=== PATIENT | female | born 2000 | race Caucasian/White ===

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

== ENCOUNTER 2020-02-03 00:11 | Outpatient (CLI) | payer OTHER, SELFPAY ==
[2020-02-03 16:41] LABS: SARS-CoV-2 RNA PCR Negative
== END 2020-02-03 00:12 | disposition home or self-care (01) ==
LOC: ANHCOVIDDT 00:11
PROVIDERS: PCP Family Medicine; Visit Provider Obstetrics & Gynecology
DX: Z01.812 Encounter for preprocedural laboratory examination (principal); Z20.828 Contact with and (suspected) exposure to other viral communicable diseases
CPT/HCPCS: 87635; C9803; U0003

== ENCOUNTER 2020-02-05 01:31 | Day surgery (SDC) | payer OTHER, SELFPAY ==
[2020-01-28 08:24] VITALS: BMI 29.2
--- NOTE | 2020-02-04 15:28 | WPDANESEPPF ---
Anes - Initial Pre Proc Eval Procedure: Operation Date: 02/05/20 07:30 Proposed Procedures p Diagnostic Laparoscopy - Naomie Malave MD Date/Time: 02/04/20 15:28 Surgeon: Naomie Malave MD Pre Op Diagnosis: pelvic pain, menorrhaghia Patient Data Age: 19 Gender: F Height: 1.63 m Weight: 77.11 kg Allergies Allergy/AdvReac Type Severity Reaction Status Date / Time No Known Allergies Allergy Verified 01/28/20 08:26 Home Medications Medication Instructions Recorded Confirmed Type Taytulla 1 cap PO DAILY 01/28/20 01/28/20 History bupropion HCl 300 mg PO DAILY 01/28/20 01/28/20 History hydrocodone-acetaminophen 1 - 2 tablet PO Q4H PRN #25 tablet 02/05/20 Rx Patient hx anesthesia problems: none Family hx anesthesia problems: none [facility] Past Medical History Medical History (Updated 02/04/20 @ 15:29 by Doc Garcia MD) Fibromyalgia Overweight (BMI 25.0-29.9) Social History Social History Smoking status: Never smoker Anes - Eval Final PreProcedure Day of Procedure 02/04/20 15:28 Patient weight: overweight Heart: regular rate and rhythm Lungs: clear to auscultation and normal air movement Airway: Mallampati scale class II Neurological: alert and oriented Last oral intake: >/= 8 hours ASA classification: II Emergent: no Anesthetic plan: proceed Anesthesia type and monitoring: general ETT Informed Consent: The patient's anesthetic plan and its attendant risks and benefits were discussed with the patient/family/POA. Questions were solicited and answers provided to the satisfaction of the patient/family/POA.
[2020-02-05] VITALS (9 sets, daily range): BP systolic 98–143; BP diastolic 75–92; PULSE 78–105; RESP 15–21; TEMP 36.2–36.6; O2SAT 98–100
[2020-02-05] MEDS: LACTATED RINGERS 1,000 ML 30 ML IV CONT ×2 (06:50→09:01)
--- NOTE | 2020-02-05 07:27 | WPDHPUPDATE1 ---
History and Physical Update Update Date/Time: 02/05/20 07:27 History and Physical has been reviewed, including an updated exam of the patient. There are NO changes in the patient's condition. Risks, benefits, and alternatives have been discussed and questions answered. Patient agrees to proceed with procedure.
[2020-02-05] MEDS: KETOROLAC 30 MG/ML VIAL (*BKC) IV PUSH (08:44)
--- NOTE | 2020-02-05 08:48 | SUR.OPER ---
EBL:5cc
--- NOTE | 2020-02-05 09:15 | P.OP_ITS ---
Procedure Note - Detailed Date of procedure: 02/05/20 Pre-op diagnosis: pelvic pain, menorrhaghia Post-op diagnosis: other (pelvic pain, endometriosis) Procedure performed: Description of procedure: The patient was taken the operating room. She was prepped and draped in the dorsal lithotomy position after induction of general anesthesia. A 5 mm left upper quadrant incision was made in the abdominal skin with a scalpel. A 5 mm trocar was inserted the intra-abdominal cavity under direct visualization of the scope. A 5 mm left lower quadrant incision was made with the scalp on the abdominal skin and a 5 mm trocar was inserted the intra- abdominal cavity under direct visualization of the scope. A 5 mm infraumbilical incision was made with scalpel and a 5 mm trocar was inserted into the intra- abdominal cavity under direct visualization of the scope. Using sharp and blunt dissection the ureter was completely exposed on the right side of the posterior cul-de-sac. The peritoneum and a right posterior cul-de-sac was removed from the ovarian fossa laterally to the rectum medially. It was from the pelvic brim to the uterine arteries in a anterior posterior dimension. This all done with sharp and blunt dissection. Cautery was used to make it hemostatic. A band of type peritoneum between the cervix and the posterior pelvis was taken down with this. Interceed was placed over the dissected area. The pelvis was irrigated with copious amounts of normal saline. The pneumoperitoneum was reduced. The trocars were removed. The patient was taken recovery room stable condition. Sponge lap and needle counts were correct x2. Anesthesia: GETA Surgeon: Naomie Malave MD Estimated blood loss (mL): 50 Drains: No Packing: No Pathology: yes Complications: No immediate complications Condition: stable Disposition: PACU Findings: There appeared to be endometriosis in the right posterior cul-de-sac in the area of the uterine artery/broad ligament. There is a band of peritoneum from the cervix to the posterior pelvis that appeared tight. The uterus, tubes and ovaries appeared normal.
[2020-02-05] MEDS: ONDANSETRON INJ 4 MG/2 ML VIAL IV PUSH (10:23)
== END 2020-02-05 11:10 | disposition home or self-care (01) ==
PROVIDERS: PCP Family Medicine; Visit Provider Obstetrics & Gynecology
PROC: (CPT 49320; principal; 2020-02-05 07:30)
DX: K66.0 Peritoneal adhesions (postprocedural) (postinfection) (principal); R10.2 Pelvic and perineal pain; N92.0 Excessive and frequent menstruation with regular cycle; M79.7 Fibromyalgia
CPT/HCPCS: 58662; 88305; J0131; J0330; J1100; J1885; J2250; J2405; J2704; J3010; J7120

== ENCOUNTER 2020-06-24 15:30 | Outpatient (RCR) | payer OTHER, SELFPAY ==
--- NOTE | 2020-06-05 09:26 | PTOPEVAL ---
INITIAL PHYSICAL THERAPY EVALUATION and PLAN OF CARE Thank you for referring Jessica Clemons to [facility].? Jessica is scheduled to be seen for physical therapy? 1x/week for 8 weeks. Please review, sign, date and return this plan of care BRANDO. I agree with and certify that the following plan of care is medically necessary. Referring Physician Date Admitting Provider: Attending Provider: Naomie Malave MD Referring Provider: Naomie Malave MD *PT Outpatient Evaluation Start: 06/05/20 08:18 Freq: Status: Active Protocol: Document 06/05/20 08:15 [facility] (Rec: 06/05/20 09:26 BOB [id number]) Therapy Assessment Status Assessment Status Assessment Status Evaluation Outpatient Past Medical History Past Medical History Source of Past Medical History Recalled from Previous Visit, Confirmed with Patient/Family Neurological History Hx Neurological Disorders No Significant History Cardiovascular History Hx Cardiac Disorders No Significant History Respiratory History Hx Respiratory Disorders No Significant History Gastrointestinal History Hx Gastrointestinal Disorders No Significant History Genitourinary History Hx Genitourinary Disorders No Significant History Musculoskeletal History Hx Fibromyalgia Yes Hematological History Hx Hematological Disorders No Significant History Endocrine History Hx Endocrine Disorders No Significant History HEENT History Hx Tonsillectomy Yes Integumentary History Hx Skin Disorders No Significant History Reproductive History Hx Endometriosis Yes Hx Other Reproductive Disorders Yes: PELVIC PAIN, PCOS Psychosocial History Hx Psychiatric Disorders No Significant History Pain History Has Past Pain Affected Your Daily Life Yes: FIBROMYALGIA Anesthesia History Hx Anesthesia Reactions No Significant History Evaluation Information Problem Diagnosis chronic pelvic pain Onset initially 3 years ago, worsened within last year Additional Evaluation Detail February 06, 2020 - laproscopic surgery - found endrometriosis Subjective Information R side of sacrum - pressure, Query Text:As Reported By Patient/ discomfort Has to be Family careful with lifting - will have R sided pain - posteriorly and in groin Also limited with certain movements of her pelvis on the R side. Sleep - unable to lie on R side, needs to keep R leg in extension - unable to flex R hip and knee Mornings
--- NOTE | 2020-07-03 09:47 | PCPTNOTE ---
Patient called & cancelled scheduled appointment this date due to illness. Message left on voice mail.
--- NOTE | 2020-07-15 14:46 | PCPTNOTE ---
PHYSICAL THERAPY DISCHARGE SUMMARY Admitting Provider: Attending Provider: Naomie Malave MD Patient:Jessica Clemons Date of :2000 Jessica had to cancel her 07/03/2020 appointment due to illness. She has not returned for any further treatments. I phoned her this date and she is doing well. She is having very little discomfort - mainly with lifting and with prolonged standing. [place] is no longer painful for her. She continues with her HEP on a regular basis. Proper patient transfer techniques were reviewed with her. Jessica will be discharged at this time. Patient?s initial visit was on 06/05/2020 08:00 and she had a total of 4 visits. The goals have been met. Thank you for referring Jessica to [facility]. Please review, sign, date and return this discharge summary BRANDO. I have been updated about Jessica's current status and I agree with discharge from the above service at this time. Referring Physician Date
== END 2020-07-29 15:38 | disposition home or self-care (01) ==
LOC: ANHHIPT 15:30
PROVIDERS: PCP Family Medicine; Referring Provider Obstetrics & Gynecology; Visit Provider Obstetrics & Gynecology
DX: R10.2 Pelvic and perineal pain (principal)
CPT/HCPCS: 97110; 97140; 97161

== ENCOUNTER 2021-12-17 14:31 | Outpatient (CLI) | payer OTHER, SELFPAY ==
--- NOTE | ~2021-12-17 | XR_ITS ---
XR ankle RT min 3V DATE: 12/17/2021 14:54 INDICATION: Right lateral ankle pain after rolling ankle. TECHNIQUE: 4 views COMPARISON: 06/06/2015 right ankle FINDINGS: There is moderate lateral soft tissue swelling. Extremely subtle possible cortical avulsion fracture from the inferior tip of the lateral malleolus; otherwise no fracture or dislocation of the ankle or disruption of the ankle mortise. IMPRESSION: Possible very slight subtle cortical avulsion fracture from the inferior tip of lateral m alleolus; moderate lateral soft tissue swelling Reviewed, dictated and finalized at location A. IMPRESSION: Possible very slight subtle cortical avulsion fracture from the inf erior tip of lateral malleolus; moderate lateral soft tissue swelling
== END 2021-12-17 14:32 | disposition home or self-care (01) ==
LOC: CHSIMG 14:35
PROVIDERS: PCP Physician Assistant
DX: M25.571 Pain in right ankle and joints of right foot (principal)
CPT/HCPCS: 73610

== ENCOUNTER 2021-12-30 14:51 | Outpatient (CLI) | payer OTHER, SELFPAY ==
--- NOTE | 2022-01-01 16:48 | WPDHOLTEREM ---
Holter/Event Monitor Holter/Event Monitor Date of procedure: 01/01/22 Holter/Event Procedure: 24 Hr Holter Monitor Diagnosis: Palpitations Indications: Palpitations Image/Tracing Quality: Good Finding: She patient was monitored for 24 hours. The underlying rhythm is sinus with a minimum heart rate of 57 beats per minute, average heart rate 91 beats per minute and maximum heart rate of 158 beats per minute. Sinus arrhythmia was noted. There were 21 APCs and no PVCs. There is no a SVT, atrial fibrillation, ventricular tachycardia, heart block or pauses. The patient had 2 episodes of dizziness which corresponded to sinus rhythm heart rate 92 and 96 beats per minute and she also had 2 episodes of palpitations which correspond to sinus rhythm rate 84 and 85 beats per minute. Conclusion: 24 hour Holter monitor is remarkable for high average heart rate; consider hyperthyroidism, anemia or inappropriate sinus tachycardia Patient's symptoms correlated with sinus rhythm.
== END 2021-12-30 14:52 | disposition home or self-care (01) ==
LOC: ANHCARD 14:53
PROVIDERS: PCP Physician Assistant; Visit Provider Obstetrics & Gynecology
DX: R00.2 Palpitations (principal)
CPT/HCPCS: 93225; 93226

== ENCOUNTER 2022-01-07 17:01 | Outpatient (RCR) | payer OTHER, SELFPAY ==
--- NOTE | 2022-01-11 08:19 | PTOPEVAL ---
Thank you for referring Jessica Clemons to [facility].? The patient is scheduled to be seen for therapy? ____x/week for ___ weeks. Please review, sign, date and return this plan of care BRANDO. I agree with and certify that the following plan of care is medically necessary. Referring Physician Date Admitting Provider: Attending Provider: BRAD PATEL Referring Provider: TUSHAR Outpatient Evaluation Start: 01/07/22 17:01 Freq: Status: Active Protocol: Document 01/07/22 17:10 [facility] (Rec: 01/07/22 17:45 [facility] [id number]) Therapy Assessment Status Assessment Status Assessment Status Evaluation Outpatient Past Medical History Neurological History Hx Neurological Disorders No Significant History Cardiovascular History Hx Cardiac Disorders No Significant History Respiratory History Hx Respiratory Disorders No Significant History Gastrointestinal History Hx Gastrointestinal Disorders No Significant History Genitourinary History Hx Genitourinary Disorders No Significant History Musculoskeletal History Hx Fibromyalgia Yes Hematological History Hx Hematological Disorders No Significant History Endocrine History Hx Endocrine Disorders No Significant History HEENT History Hx Tonsillectomy Yes Integumentary History Hx Skin Disorders No Significant History Reproductive History Hx Endometriosis Yes Hx Other Reproductive Disorders Yes: PELVIC PAIN, PCOS Psychosocial History Hx Psychiatric Disorders No Significant History Pain History Has Past Pain Affected Your Daily Life Yes: FIBROMYALGIA Anesthesia History Hx Anesthesia Reactions No Significant History Evaluation Information Problem Diagnosis R ankle avulsion fracture, instability Onset 12/17/21 Additional Evaluation Detail LEFS = 60% functionally declined Subjective Information patient reports she was Query Text:As Reported By Patient/ walking and stepped on some Family uneven ground. she reports she almost fell, but did catch her self from falling. she reports she had xrays taken which show a slight possible avulsion fracture of the lateral malleolus of the R ankle. she reports she has been in the boot for about 3 weeks. she reports she has a follow up on 02/08/22 with , and reports she thinks she has to wear the boot until
--- NOTE | 2022-02-03 13:12 | PTOPEVAL ---
Thank you for referring Jessica Clemons to [facility].? The patient is scheduled to be seen for therapy? ____x/week for ___ weeks. Please review, sign, date and return this plan of care BRANDO. I agree with and certify that the following plan of care is medically necessary. Referring Physician Date Admitting Provider: Attending Provider: BRAD PATEL Referring Provider: TUSHAR Outpatient Evaluation Start: 01/07/22 17:01 Freq: Status: Active Protocol: Document 02/03/22 12:00 [facility] (Rec: 02/03/22 13:11 [facility] [id number]) Therapy Assessment Status Assessment Status Assessment Status Evaluation Outpatient Past Medical History Neurological History Hx Neurological Disorders No Significant History Cardiovascular History Hx Cardiac Disorders No Significant History Respiratory History Hx Respiratory Disorders No Significant History Gastrointestinal History Hx Gastrointestinal Disorders No Significant History Genitourinary History Hx Genitourinary Disorders No Significant History Musculoskeletal History Hx Fibromyalgia Yes Hematological History Hx Hematological Disorders No Significant History Endocrine History Hx Endocrine Disorders No Significant History HEENT History Hx Tonsillectomy Yes Integumentary History Hx Skin Disorders No Significant History Reproductive History Hx Endometriosis Yes Hx Other Reproductive Disorders Yes: PELVIC PAIN, PCOS Psychosocial History Hx Psychiatric Disorders No Significant History Pain History Has Past Pain Affected Your Daily Life Yes: FIBROMYALGIA Anesthesia History Hx Anesthesia Reactions No Significant History Evaluation Information Problem Diagnosis R ankle avulsion fracture, instability Onset 12/17/21 Additional Evaluation Detail LEFS = 8% functionally declined Subjective Information patient reports she feels Query Text:As Reported By Patient/ good this date. she reports Family she has no pain today. she reports at most she is 3/10 sore in the R ankle. however, she reports this is only when up on her feet for al margaret time . she reports she is back to all prior level activities and work with normal shoe wear. Pain Assessment Timing of Pain Assessment Timing of Pain Assessment Assessment Pain Scale Pain Scale Used Numeric (1 - 10) Self Report Pain Assessment Right Ankle(s) Reported Pain Level 0 Greatest Pain Intensity 3 Pain Score Pain Score
== END 2022-02-03 10:24 | disposition home or self-care (01) ==
LOC: CHSPT 17:01
PROVIDERS: PCP Physician Assistant
DX: M25.373 Other instability, unspecified ankle (principal)
CPT/HCPCS: 97016; 97110; 97161; 97530

== ENCOUNTER 2022-03-16 09:00 | Outpatient (RCR) | payer OTHER, SELFPAY ==
--- NOTE | 2022-02-07 10:34 | PTOPEVAL ---
PHYSICAL THERAPY EVALUATION AND PLAN OF CARE Thank you for referring Jessica Clemons to [facility].? The patient is scheduled to be seen for therapy? 1x/week for 4-8 weeks. Please review, sign, date and return this plan of care BRANDO. I agree with and certify that the following plan of care is medically necessary. Referring Physician Date Evaluation Diagnosis low back pain Additional Evaluation Detail 20 weeks genstation Subjective Information States that she previously had Query Text:As Reported By Patient/ back pain and she Family participated in physical therapy that helped to relieve the pain. The pain was previously on the right and doing her HEP was helpful. About 2months into she noted low back pain more on the left side and this pain feels somewhat similar except with more locking - decreased ability to move. Hurts worst when on a hard surface and when lying flat. Prolonged standing can be uncomfortable. Left Spine, Lumbar Reported Pain Level 5 Pain Description Aching,Tightness Pain Frequency Acute,Continuous Pain Score Pain Score 5: Self Report Interventions Used Interventions Used By Clinicians Exercise,Manual Therapy Techniques,Myofascial Release, Position Change Pain Relief Interventions Used By Position Change Patient Cervical and Lumbar ROM Lumbar ROM Lumbar Comments generally WFL with decreased extension at L4 and pain in left SIJ region Posture Supine Position Leg Length Discrepancy left leg long; iliac crests inflared, right more than left Palpation trigger points and spasm noted to left gluteus medius and adeline PT Clinical Summary Jessica is a 21 yo female, 20weeks gestation, with left sided low back/SIJ pain. She presents today with left SIJ dysfunction with left iliact crest rotated posteriorly and with associated spasms to left sided glutes. She also pre
--- NOTE | 2022-03-09 09:50 | PCPTNOTE ---
Patient called & cancelled scheduled appointment this date due to not being able to get off work for therapy appointment.
--- NOTE | 2022-03-16 09:24 | PTOPEVAL ---
PHYSICAL THERAPY DISCHARGE NOTE Thank you for referring Jessica Clemons to [facility].? Please review, sign, date and return this plan of care BRANDO. I agree with and certify that the following plan of care is medically necessary. Referring Physician Date Attending Provider: Maryuri Goodwin CNM Diagnosis low back pain Additional Evaluation Detail 25 weeks genstation Subjective Information States that she feels an Query Text:As Reported By Patient/ overall improvement in Family symptoms with some flucutating days depending on her activity level and how much she is on her feet. She goes to do the gym to do her home exercises. She states that she knows how to help her symptoms and what stretches to do and it helps. Lumbar ROM Lumbar Comments generally WFL with decreased extension at L4 and pain in left SIJ region Lower Extremity Muscle Strength Testing General Lower Extremity Strength Gross Lower Extremity Strength 5/5 Hip flexion, abduction, and extension; good glute activation Posture Posture Supine Position Additional Posture Comments neutral pelvis noted today Palpation Assessment Palpation Palpation mild tenderness to left glute med; overall improved and generally WFL PT Clinical Summary Jessica is a 21 yo female, 25weeks gestation, with left sided low back/SIJ pain. She demonstrates normal pelvic positioning today. She reports understanding of her HEP and understanding of management of symptoms as she progresses with her . We will d/ c from PT at this time with independent HEP.
== END 2022-03-17 08:57 | disposition home or self-care (01) ==
LOC: ANHPT 09:00
PROVIDERS: PCP Physician Assistant; Visit Provider Advanced Practice Midwife
DX: O99.891 Other specified diseases and conditions complicating pregnancy (principal); M54.50 Low back pain, unspecified; Z3A.20 20 weeks gestation of pregnancy; Z3A.25 25 weeks gestation of pregnancy
CPT/HCPCS: 97110; 97112; 97140; 97162

== ENCOUNTER 2022-03-28 11:03 | Outpatient (RCR) | payer OTHER, SELFPAY ==
[2022-03-28 11:55] VITALS: BP 118/58; PULSE 71
== END 2022-06-26 23:59 | disposition home or self-care (01) ==
LOC: ANHOBOP 11:03
PROVIDERS: PCP Physician Assistant; Visit Provider Obstetrics & Gynecology
DX: O36.8120 Decreased fetal movements, second trimester, not applicable or unspecified (principal); Z3A.27 27 weeks gestation of pregnancy
CPT/HCPCS: 59025

== ENCOUNTER 2022-05-19 15:32 | Outpatient (CLI) | payer OTHER, SELFPAY ==
[2022-05-19 15:55] VITALS: BP 133/77; PULSE 115
[2022-05-19 16:00] VITALS: BP 121/70; PULSE 97
[2022-05-19 16:02] VITALS: BP 124/69; PULSE 100
[2022-05-19 16:06] VITALS: BP 122/72; PULSE 107
[2022-05-19 16:11] VITALS: BP 129/69; PULSE 92
[2022-05-19 16:16] VITALS: BP 120/69; PULSE 105
== END 2022-05-19 16:22 | disposition home or self-care (01) ==
LOC: ANHOBOP 15:37 → ANHOBPP 15:37
PROVIDERS: PCP Physician Assistant; Visit Provider Obstetrics & Gynecology
DX: O41.8X90 Other specified disorders of amniotic fluid and membranes, unspecified trimester, not applicable or unspecified (principal); Z3A.00 Weeks of gestation of pregnancy not specified
CPT/HCPCS: 59025; 84112; 99199

== ENCOUNTER 2022-06-30 14:28 | Inpatient (IN) | payer OTHER, SELFPAY ==
[2022-06-30 17:00] VITALS: BMI 41.8
--- NOTE | 2022-06-30 17:01 | WPDANESEPP ---
Anes - Eval Pre Procedure Procedure: labor epidural Date/Time: 06/30/22 17:01 Pre Op Diagnosis: contractions Patient Data Age: 22 Gender: F Height: Weight: Last Vital Signs O2 Del Method Room Air 06/30/22 16:49 Allergies Allergy/AdvReac Type Severity Reaction Status Date / Time No Known Allergies Allergy Verified 05/19/22 16:01 Home Medications Medication Instructions Recorded Confirmed Type prenat.vits,joanne,dyk-sots-ruftr 1 tablet PO DAILY 05/19/22 06/30/22 History Patient hx anesthesia problems: none Family hx anesthesia problems: none Results Review: All pre-operative results and documents have been reviewed as part of the pre-operative evaluation. [facility] Past Medical History Medical History Fibromyalgia Overweight (BMI 25.0-29.9) Social History Social History Smoking status: Never smoker Second hand tobacco smoke exposure: No Alcohol intake: never Substance use: never Living arrangements: with family Gender identity (if verbalized by the patient): Female Sexual Orientation (if Verbalized by the Patient): Straight or Heterosexual Spiritual care concerns: No Exam Day of Procedure 06/30/22 17:01 Patient weight: overweight Heart: regular rate and rhythm Lungs: normal air movement Airway: Mallampati scale Neurological: alert and oriented
[2022-06-30 17:12] LABS: Basophils Percent Auto 0.1 % (0.2-1.2); Eosinophils Absolute Auto 0.1 K/mm3 (0-0.3); Eosinophils Percent Auto 0.3 % (0-4.4); Hematocrit 41.7 % (37.0-47.0); Immature Granulocyte Absolute 0.07 K/mm3 (0.00-0.031); Immature Granulocyte Percent A 0.5 % (0-0.5); Lymphocytes Absolute Auto 2.71 K/mm3 (0.9-3.2); Lymphocytes Percent Auto 18.8 % (18.3-44.2); Mean Corpuscular HGB Conc 33.6 g/dl (32-36); Mean Corpuscular Hemoglobin 32.6 pg (26-34); Mean Platelet Volume 11.3 fl (7.4-10.4); Monocytes Percent Auto 6.8 % (2.6-8.5); Neutrophils Absolute Auto 10.6 K/mm3 (1.3-6.7); Neutrophils Percent Auto 73.5 % (45.5-73.1); Platelet Count Result 170 k/mm3 (150-375); Red Cell Distribution Width 14.9 % (11.5-14.5); White Blood Count 14.4 K/mm3 (4.5-10.0)
[2022-06-30 17:53] VITALS: BP 132/84; PULSE 129
[2022-06-30 21:51] VITALS: BP 126/84; PULSE 92
[2022-06-30 22:07] VITALS: TEMP 36.5
[2022-07-01] VITALS (195 sets, daily range): BP systolic 78–216; BP diastolic 39–184; PULSE 32–179; RESP 18; TEMP 36.3–38; O2SAT 78–100
[2022-07-01] MEDS: LACTATED RINGERS 1,000 ML 125 ML IV CONT ×2 (05:25→09:30)
[2022-07-01] MEDS: OXYTOCIN 30 UNITS/NS 500 ML 30 UNITS/500 ML BAG IV CONT (05:26)
[2022-07-01] MEDS: fentaNYL CITRATE INJ (*CRX) 100 MCG/2 ML VIAL 50 MCG IV PUSH (07:51)
--- NOTE | 2022-07-01 07:59 | WPDOBADMIT ---
Obstetrics - Admit Note Admission Note: record reviewed. No pertinent additions to the history and/or any subsequent changes in the physical findings that are not consistent with the expected course of the were found. Elective IOL, hx endometriosis, hx fibromyalgia, Ruptured with RN check, CNM checked behind and /-2 with meconium stained fluid, dr. lindsey aware Additions to the history and/or subsequent changes in the physical findings follow. None.
[2022-07-01] MEDS: ONDANSETRON INJ 4 MG/2 ML VIAL IV PUSH (13:29)
[2022-07-01 14:49] LABS: Rapid Plasma Reagin Non-Reactive (NonReactive)
--- NOTE | 2022-07-01 16:41 | PM.OBPRVD ---
OB - Delivery Note Procedure Delivery date: 07/01/22 Procedure: Delivery augmentation: Pitocin Delivery monitor: External FHT and Internal Uterine Route of delivery: Episiotomy description: None Laceration Description: Periurethral and Perineal - 2nd Degree Delivery repair: vicryl Specimen: Yes Quantitative Blood Loss (ml): 400 Anesthesia type: Epidural [place] Baby Date of : 07/01/22 Weeks of gestation at delivery: 40 Weight (pounds): 7 Weight (ounces): 8 score one minute: 8 score five minutes: 9
[2022-07-01] MEDS: OXYTOCIN 30 UNITS/NS 500 ML 30 UNITS/500 ML BAG 125 UNITS IV CONT (16:48)
[2022-07-01] MEDS: IBUPROFEN 600 MG TABLET PO ×2 (17:22→23:08)
[2022-07-01] MEDS: WITCH HAZEL 40 PADS 1 PAD TOPICAL (18:57)
[2022-07-01] MEDS: BENZOCAINE 20% AER SPR (*SP) 56 GM CAN 1 SPRAY TOPICAL (18:57)
[2022-07-01] MEDS: DOCUSATE SODIUM 100 MG CAPSULE PO (23:10)
[2022-07-02] MEDS: ACETAMINOPHEN 325 MG TABLET 650 MG PO ×4 (01:00→20:33)
[2022-07-02 04:45] VITALS: BP 109/62; PULSE 104; RESP 18; TEMP 36.6; O2SAT 100
[2022-07-02] MEDS: IBUPROFEN 600 MG TABLET PO ×3 (04:59→17:52)
[2022-07-02 05:30] LABS: Hematocrit 29.5 % (37.0-47.0); Hemoglobin 9.8 g/dL (12.0-15.0)
[2022-07-02 08:00] VITALS: BP 129/67; PULSE 104; PULSE 107; RESP 18; TEMP 36.6; O2SAT 100
[2022-07-02] MEDS: DOCUSATE SODIUM 100 MG CAPSULE PO ×2 (08:02→17:51)
[2022-07-02] MEDS: MULTIVIT/MIN/PREN/FOL AC/IRON TABLET 1 TAB PO (08:02)
[2022-07-02] MEDS: POLYSACCHARIDE IRON COMPLEX 150 MG CAPSULE PO ×2 (08:04→17:52)
--- NOTE | 2022-07-02 10:00 | PM.OBPNVD ---
OB - PN: Subj Subjective Date/time seen: 07/02/22 10:00 s/p vaginal delivery day 1 OB - PN: Obj Data Labs CBC & Chem 7: 07/02/22 04:52 Labs: Laboratory Results - last 24 hr 06/30/22 07/02/22 16:46 04:52 Hgb 9.8 L D Hct 29.5 L RPR Non-reactive OB - PN A/P Plan day: 1 Time Spent With Patient Time: Total time spent is greater than 50% in coordination of care (as documented) at patient's floor/unit and/or counseling patient: Review of Systems Review of Systems: All systems reviewed & are unremarkable except as noted in HPI and below Exam Const: General: cooperative, healthy appearing and comfortable
--- NOTE | 2022-07-02 12:20 | WPDANLDPN2 ---
Anes-Prog Note L&D Date/Time: 07/02/22 12:20 Comfortable throughout: labor and delivery Neuraxial method: epidural Epidural/Spinal procedure site: clean & non-tender Neuro status: Neuro function grossly intact. Cardiovascular status: normal Respiratory status: normal Airway patency: baseline Mental status: baseline Post-Op hydration status: normal Vital Signs: Last Vital Signs Temp 36.6 C 07/02/22 08:00 Pulse 107 H 07/02/22 08:00 Resp 18 07/02/22 08:00 BP 129/67 07/02/22 08:00 Pulse Ox 100 07/02/22 08:00 O2 Del Method Room Air 07/02/22 08:00 Pain score (VAS): 10 I/O: Intake & Output 07/01/22 07/02/22 07/02/22 23:59 07:59 15:59 Intake Total 500 Output Total 115 Balance 385 Post-procedural complaints: none Patient feedback: Patient satisfied with anesthetic care.
[2022-07-02 13:30] VITALS: BP 135/74; PULSE 102; RESP 18; TEMP 36.1; O2SAT 99
[2022-07-02 18:45] VITALS: BP 125/72; PULSE 107; RESP 16; TEMP 36.5
[2022-07-03] MEDS: IBUPROFEN 600 MG TABLET PO ×3 (01:32→14:33)
[2022-07-03] MEDS: ACETAMINOPHEN 325 MG TABLET 650 MG PO ×2 (05:25→11:50)
[2022-07-03 08:00] VITALS: BP 124/79; PULSE 89; RESP 16; TEMP 36.6; O2SAT 100
[2022-07-03] MEDS: DOCUSATE SODIUM 100 MG CAPSULE PO (08:13)
[2022-07-03] MEDS: POLYSACCHARIDE IRON COMPLEX 150 MG CAPSULE PO (08:13)
[2022-07-03] MEDS: MULTIVIT/MIN/PREN/FOL AC/IRON TABLET 1 TAB PO (08:16)
--- NOTE | 2022-07-03 11:07 | PM.OBPNVD ---
OB - PN: Subj Subjective Date/time seen: 07/03/22 11:07 s/p vaginal delivery day 1 OB - PN: Obj Data Labs CBC & Chem 7: 07/02/22 04:52 OB - PN A/P Plan day: 2 Plan: routine care and discharge home Time Spent With Patient Time: Total time spent is greater than 50% in coordination of care (as documented) at patient's floor/unit and/or counseling patient: Review of Systems Review of Systems: All systems reviewed & are unremarkable except as noted in HPI and below Exam Const: General: cooperative, healthy appearing and comfortable
--- NOTE | 2022-07-03 11:15 | PM.OBDSVD ---
DS: Admitting Diagnosis Discharge Date 07/03/22 Admitting Diagnosis IOL OB - DS: Summary OB Procedures : None OB Procedures Intrapartum: Spontaneous Vag Delivery OB Procedures: : None Time Spent with Patient Time attestation: Total time spent providing and/or coordinating discharge services: DS: Data Data Completed and Pending Pending studies at discharge: Pending at discharge 07/01/22 16:08 Surgical [PTH] Routine Discharge Plan Discharge Attending physician on discharge: Naomie Malave Discharging Clinician: Maryuri Goodwin Patient Disposition: Home, Self-Care Activity: pelvic rest Diet: regular Patient Instructions: Antibiotic Form Stand Alone Forms: General Discharge Information Follow-up/Referrals: Naomie Malave MD [Physician] - 4 Weeks Discharge Medications: New ibuprofen 600 mg Tablet 600 mg PO Q6H PRN (Reason: Cramping) Qty: 30 0RF Continued Vitamin Tablet 1 tablet PO DAILY Date of admission: 06/30/22 14:28 Primary Care Provider: MandeepGarcia Admitting Provider: Naomie Malave Attending physician on admission: Naomie Malave Condition: Stable
--- NOTE | 2022-07-03 12:03 | PC.NURSE ---
Patient viewed the discharge video Mother & Baby Care, The First Two Weeks . Patient was given the opportunity and encouraged to ask questions. Patient verbalized understanding of information shared and has been given the mother/baby guide for home reference.
[2022-07-04 08:21] VITALS: BP 133/84; PULSE 93; RESP 20; TEMP 36.8; O2SAT 100
== END 2022-07-03 17:30 | disposition home or self-care (01) | DRG 560 ==
LOC: ANHLDR 16:10 → ANHOB2 07-01 19:29
PROVIDERS: Admitting Provider Obstetrics & Gynecology; PCP Physician Assistant; Visit Provider Obstetrics & Gynecology
DX: O99.892 Other specified diseases and conditions complicating childbirth (principal); O41.1230 Chorioamnionitis, third trimester, not applicable or unspecified; O63.1 Prolonged second stage (of labor); O70.1 Second degree perineal laceration during delivery; M79.7 Fibromyalgia; Z37.0 Single live birth; Z3A.40 40 weeks gestation of pregnancy; O36.8330 Maternal care for abnormalities of the fetal heart rate or rhythm, third trimester, not applicable or unspecified; O77.0 Labor and delivery complicated by meconium in amniotic fluid; N80.9 Endometriosis, unspecified; O71.82 Other specified trauma to perineum and vulva
CPT/HCPCS: 36415; 85014; 85018; 85025; 86592; 86850; 86900; 86901; 88307; A9270; J2405; J2590; J2795; J3010; J7120

== ENCOUNTER 2022-09-02 13:52 | Outpatient (CLI) | payer OTHER, SELFPAY ==
--- NOTE | ~2022-09-02 | XR_ITS ---
EXAMINATION: XR knee RT 3V DATE: 09/02/2022 14:24 INDICATION: Anterior right knee pain. TECHNIQUE: 3 views of right knee on 4 radiographs were obtained. COMPARISON: None. FINDINGS: Bone alignment is normal. No fracture. Joint spaces are well maintained. There is no knee j oint effusion. IMPRESSION: 1. Normal right knee. Reviewed, dictated and finalized at location A. ATRIC ORTHODONTIST IMPRESSION: 1. Normal right knee.
--- NOTE | ~2022-09-02 | XR_ITS ---
EXAMINATION: XR knee LT 3V DATE: 09/02/2022 14:23 INDICATION: Left knee pain TECHNIQUE: Three views of the left knee were obtained. COMPARISON: None. FINDINGS: Alignment is normal. There is no fracture. There is an eccentric lytic lesion in the medial aspect of the distal shaft of the left femur with mild expansion. 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 Joint spaces are nor mal with no erosions. No joint effusion/synovitis. Soft tissues are unremarkable. IMPRESSION: 1. No acute osseous abnormality. Reviewed, dictated and finalized at location B. PATROLLER
== END 2022-09-02 13:53 | disposition home or self-care (01) ==
LOC: CHSIMG 13:55
PROVIDERS: PCP Registered Nurse; Visit Provider Registered Nurse
DX: M25.561 Pain in right knee (principal); M25.562 Pain in left knee
CPT/HCPCS: 73562

== ENCOUNTER 2022-09-07 16:01 | Outpatient (RCR) | payer OTHER, SELFPAY ==
--- NOTE | 2022-09-07 16:57 | PTOPEVAL1 ---
Assessment and note entered by JT File, PT Evaluation Information Assessment Status Evaluation Diagnosis bilateral knee pain Onset 07/05/22 Subjective Information patient reports she has been having bilateral knee pain since she gave . she reports she has increased pain in the bilateral knees with weight bearing. she reports routine child to her daughter. she reports the pain in the knees is achy in nature. Reported Pain Level Pain Score 8: Self Report Assessment PT Clinical Summary mrs. correa presents to skilled PT services for evaluation and treatment of bilateral knee pain. she presents this date with signs and symptoms of patellofemoral pain. she presents with weakness, core weakness, pain, and decreased flexibility, she would benefit from skilled PT to improve her objective/functional deficits and progress towards a return to her prior level functional activity performance/quality of life. Plan of Care Interventions Electrical Stimulation,Gait Training,Hot Pack/Cold Pack,Manual Therapy,Neuro Re-education,Patient/ Caregiver Educati,Therapeutic Activities, Therapeutic Exercise PT Services Indicated Yes Treatment Frequency and 3x weekly for 9 visits Duration These treatments will address the objective and functional deficits as defined above. The patient will be advanced safely and appropriately in order for the patient to progress towards his/her prior level of function. Additional exercises will be introduced and as well as a comprehensive home exercise program upon discharge, if needed, ?to ensure carryover of functional gains achieved in the clinic. This treatment plan has been reviewed and agreement upon by the patient.
== END 2022-10-06 14:20 | disposition home or self-care (01) ==
LOC: CHSPT 16:01
PROVIDERS: PCP Family Medicine; Visit Provider Registered Nurse
DX: M25.561 Pain in right knee (principal); M25.562 Pain in left knee
CPT/HCPCS: 97110; 97161

== ENCOUNTER 2023-01-23 12:44 | Outpatient (CLI) | payer OTHER, SELFPAY ==
[2023-01-23 13:18] LABS: SARS-CoV-2 Ag Negative (Negative)
[2023-01-23 13:26] LABS: Strep Group A RT-PCR NOT DETECTED (Negative)
== END 2023-01-23 12:45 | disposition home or self-care (01) ==
LOC: CHSLAB 12:46
PROVIDERS: PCP Registered Nurse; Visit Provider Registered Nurse
DX: J02.9 Acute pharyngitis, unspecified (principal); Z20.822 Contact with and (suspected) exposure to COVID-19
CPT/HCPCS: 87426; 87651; C9803

== ENCOUNTER 2023-10-02 12:07 | Outpatient (CLI) | payer OTHER, SELFPAY ==
--- NOTE | ~2023-10-02 | XR_ITS ---
XR lumbar spine 2-3V DATE: 10/02/2023 12:38 INDICATION: Lumbar radiculopathy TECHNIQUE: AP, lateral, coned lateral lumbosacral views COMPARISON: None FINDINGS: There is minimal degenerative spurring of the thoracic and lumbar spine. No fracture or bone destruction. The lumbar pedicles are intact. No spondylolisthesis. The sacroiliac joints are intact. IMPRESSION: Minimal degenerative spurring Reviewed, dictated and finalized at location B. KING MANAGER
== END 2023-10-02 12:08 | disposition home or self-care (01) ==
LOC: CHSLAB 12:14
PROVIDERS: PCP Registered Nurse; Visit Provider Registered Nurse
DX: M54.16 Radiculopathy, lumbar region (principal)
CPT/HCPCS: 72100

== ENCOUNTER 2023-10-05 11:22 | Outpatient (CLI) | payer OTHER, SELFPAY ==
[2023-10-05 11:45] LABS: Basophils Absolute Auto 0.03 K/mm3 (0.00-0.10); Basophils Percent Auto 0.3 % (0.0-1.0); Eosinophils Absolute Auto 0.16 K/mm3 (0.02-0.50); Eosinophils Percent Auto 1.7 % (1.0-6.0); Hematocrit 41.8 % (35.0-49.0); Hemoglobin 13.6 g/dL (12.0-15.0); Immature Granulocyte Absolute 0.04 K/mm3 (0.00-0.00); Immature Granulocyte Percent A 0.4 % (0.0-0.0); Lymphocytes Absolute Auto 1.57 K/mm3 (1.10-4.50); Lymphocytes Percent Auto 16.3 % (18.0-42.0); Mean Corpuscular HGB Conc 32.5 g/dL (32.0-36.0); Mean Corpuscular Hemoglobin 30.5 pg (27.0-31.0); Mean Corpuscular Volume 93.7 fL (78.0-102.0); Mean Platelet Volume 10.4 fl (9.2-11.8); Monocytes Absolute Auto 0.57 K/mm3 (0.10-0.90); Monocytes Percent Auto 5.9 % (2.0-11.0); Neutrophils Absolute Auto 7.3 K/mm3 (1.7-7.2); Neutrophils Percent Auto 75.4 % (50.0-70.0); Platelet Count Result 198 K/mm3 (150-420); Red Blood Count 4.46 M/mm3 (4.20-5.40); Red Cell Distribution Width 12.2 % (11.6-14.4); White Blood Count 9.6 K/mm3 (4.8-10.8)
[2023-10-05 12:21] LABS: Alanine Aminotransferase 20 U/L (14-59); Albumin Level 3.1 g/dL (3.4-5.0); Alkaline Phosphatase 81 U/L (46-116); Anion Gap 11 mmol/L (8-16); Aspartate Amino Transferase 12 U/L (15-37); Bilirubin,Total 0.2 mg/dL (0.00-1.00); Blood Urea Nitrogen 17 mg/dL (7-18); Calcium 8.9 mg/dL (8.5-10.1); Carbon Dioxide 26 mmol/L (21-32); Chloride 107 mmol/L (98-108); Estimated Glomerular Filt Rate > 60; Glucose 98 mg/dL (70-99); Iron 75 ug/dL (50-170); Magnesium 1.6 mg/dL (1.8-2.4); Osmolality Calculated 299 mOsm/kg (285-295); Percent Iron Saturation 29 % (12-57); Potassium 3.9 mmol/L (3.5-5.1); Sodium 144 mmol/L (136-145); Total Protein 6.5 g/dL (6.4-8.2)
== END 2023-10-05 11:23 | disposition home or self-care (01) ==
PROVIDERS: PCP Family Medicine; Visit Provider Registered Nurse
DX: R25.2 Cramp and spasm (principal)
CPT/HCPCS: 36415; 80053; 83540; 83550; 83735; 85025

== ENCOUNTER 2023-10-09 09:03 | Outpatient (RCR) | payer OTHER, SELFPAY ==
--- NOTE | 2023-10-09 10:09 | OPREHPOC ---
Outpatient Therapy Plan of Care This is a Multidisciplinary Plan of Care that may contain components documented by all disciplines (PT, OT, and ST.) PT Problem 1 PT Problem #1 Knowledge Deficit PT Goal 1 Goal Patient to demonstrate independence with HEP Target Visit 5 PT Problem 2 PT Problem #2 Pain PT Goal 1 Goal 1. Patient to report highest pain at 2/10 2. Patient to report ability to complete shift at work with no radiating pain to the R LE Target Visit 10 PT Problem 3 PT Problem #3 Impaired Strength PT Goal 1 Goal Patient to demonstrate 5/5 R LE strength to return to getting out of chair at PLOF Target Visit 10 PT Problem 4 PT Problem #4 Impaired Functional Mobil PT Goal 1 Goal 1. Patient to demonstrate ability to reach to floor to picker machine operator her daughter 2. Patient to report ability to ambulate for >30 minutes to grocery shop with no radiating pain 3. Patient to score 50% improvement on Back Index Target Visit 10
--- NOTE | 2023-10-09 10:09 | PTOPEVAL1 ---
Assessment and note entered by Kinza Pisano DPT Evaluation Information Assessment Status Evaluation Diagnosis low back pain, R LE pain Onset 10/02/23 Subjective Information Patient reports about 2 weeks ago at work she noticed a sharp pain with standing up from her chair to the R low back and hip and difficulty with walking. She reports with walking her pain would lessen. She does report pain will radiate down to the R foot. She reports she has had an x- ray and was prescribed pain medication. Patient reports increased pain with prolonged positioning, getting up from a chair, sleeping on her side, and getting into and out of the car. 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 Reported Pain Level Pain Score 5,6: Self Report Assessment PT Clinical Summary Ms. Clemons is a 23 year old who presents to PT with low back pain that radiated to the R LE. She demonstrates decreased R LE strength, decreased lumbar ROM, and decreased LE flexibility impairing her ability to stand up out of chair, ambulate prolonged distances, get in and out of the car and sitting for long periods of time. She would benefit from skilled PT to address impairments and return to PLOF. Plan of Care Interventions Electrical Stimulation,Gait Training,Hot Pack/Cold Pack,Manual Therapy,Mechanical Traction,Neuro Re- education,Patient/Caregiver Educati,Therapeutic Activities,Therapeutic Exercise PT Services Indicated Yes Treatment Frequency and 2x weekly for 10 visits Duration These treatments will address the objective and functional deficits as defined above. The patient will be advanced safely and appropriately in order for the patient to progress towards his/her prior level of function. Additional exercises will be introduced and as well as a comprehensive home exercise program upon discharge, if needed, ?to ensure carryover of functional gains achieved in the clinic. This treatment plan has been reviewed and agreement upon by the patient.
--- NOTE | 2023-10-13 11:46 | PCPTNOTE ---
pt cancelled today due to being ill
--- NOTE | 2023-11-02 17:23 | PCPTNOTE ---
No call no show this date. Patient called, voicemail left.
--- NOTE | 2023-11-06 08:34 | PCPTNOTE ---
Patient cancelled session due to testing positive for Covid. Patient reports that she will call and reschedule when she is feeling better.
--- NOTE | 2023-11-17 07:45 | PCPTNOTE ---
No call no show. Voicemail left for patient to reschedule.
--- NOTE | 2023-11-24 13:49 | OPREHPOC ---
Outpatient Therapy Plan of Care This is a Multidisciplinary Plan of Care that may contain components documented by all disciplines (PT, OT, and ST.) PT Problem 1 PT Problem #1 Knowledge Deficit PT Goal 1 Goal Patient to demonstrate independence with HEP Target Visit 5 Progress Not Met PT Problem 2 PT Problem #2 Pain PT Goal 1 Goal 1. Patient to report highest pain at 2/10 2. Patient to report ability to complete shift at work with no radiating pain to the R LE Target Visit 10 Progress Not Met PT Problem 3 PT Problem #3 Impaired Strength PT Goal 1 Goal Patient to demonstrate 5/5 R LE strength to return to getting out of chair at PLOF Target Visit 10 Progress Not Met PT Problem 4 PT Problem #4 Impaired Functional Mobil PT Goal 1 Goal 1. Patient to demonstrate ability to reach to floor to slate picker her daughter 2. Patient to report ability to ambulate for >30 minutes to grocery shop with no radiating pain 3. Patient to score 50% improvement on Back Index Target Visit 10 Progress Not Met
--- NOTE | 2023-11-24 13:49 | PTOPREEVAL ---
Assessment and note entered by JT File, PT Evaluation Information Assessment Status Re-evaluation Diagnosis low back pain, R LE pain Onset 10/02/23 Subjective Information patient reports her lower back still bothers her. she reports it still runs down the R LE to the foot which is where it hurts the worst. she reports she has increased pain and symptoms with being in one position for too long. she reports she has not be able to attend therapy recently due to having COVID and then having to see her dad in the hospital. Reported Pain Level Pain Score 7,7: Self Report Assessment PT Clinical Summary mrs. correa presents to skilled PT for her 5th skilled PT visit. due to illness and issues with her fathers health, she has not been to therapy in over a month. as of this date, she continues to have deficits in strength, rom, flexibility, and functional activities. she continues to have significant pain in the lower back and down the R LE. she would benefit from return to skilled PT and continuation of remainder of POC to improve her objective/functional deficits and achieve her remaining skilled PT goals. Plan of Care Interventions Electrical Stimulation,Gait Training,Hot Pack/Cold Pack,Manual Therapy,Mechanical Traction,Neuro Re- education,Patient/Caregiver Educati,Therapeutic Activities,Therapeutic Exercise PT Services Indicated Yes Treatment Frequency and continue skilled PT 2x weekly for 5 more visits Duration These treatments will address the objective and functional deficits as defined above. The patient will be advanced safely and appropriately in order for the patient to progress towards his/her prior level of function. Additional exercises will be introduced and as well as a comprehensive home exercise program upon discharge, if needed, ?to ensure carryover of functional gains achieved in the clinic. This treatment plan has been reviewed and agreement upon by the patient.
--- NOTE | 2023-12-12 08:49 | OPREHPOC ---
Outpatient Therapy Plan of Care This is a Multidisciplinary Plan of Care that may contain components documented by all disciplines (PT, OT, and ST.) PT Problem 1 PT Problem #1 Knowledge Deficit PT Goal 1 Goal Patient to demonstrate independence with HEP Target Visit 5 Progress Met PT Problem 2 PT Problem #2 Pain PT Goal 1 Goal 1. Patient to report highest pain at 2/10 2. Patient to report ability to complete shift at work with no radiating pain to the R LE Target Visit 10 Progress Not Met PT Problem 3 PT Problem #3 Impaired Strength PT Goal 1 Goal Patient to demonstrate 5/5 R LE strength to return to getting out of chair at PLOF Target Visit 10 Progress Partially Met PT Problem 4 PT Problem #4 Impaired Functional Mobil PT Goal 1 Goal 1. Patient to demonstrate ability to reach to floor to lemon picker her daughter, met 2. Patient to report ability to ambulate for >30 minutes to grocery shop with no radiating pain 3. Patient to score 50% improvement on Back Index Target Visit 10 Progress Partially Met Comment able to walk 30 min but has pain
--- NOTE | 2023-12-12 08:50 | PTOPDC ---
Assessment and note entered by Kinza Bernal DPT Evaluation Information Assessment Status Re-evaluation Diagnosis low back pain, R LE pain Onset 10/02/23 Subjective Information Patient reports pain is about the same but was able to go for a walk for 30 min last night. she reports she has not been having much back pain but has radiating pain down the R LE. she reports working also increases radiating pain. she reports independence with HEP. she thinks she would like to take a break from PT. Reported Pain Level Pain Score 5,5: Self Report Assessment PT Clinical Summary Ms. Clemons has been seen for 8 visits of skilled PT with minimal progress towards goals. She continues to have difficulty with lumbar flexion, walking greater than 30 minutes without radiating symptoms to the R LE and picking up her daughter. She does demonstrate improved LE strength. She follows up with neuro surgeon on 12/14/23. She will be discharged at this time. Plan of Care PT Services Indicated No
== END 2023-12-12 20:00 | disposition home or self-care (01) ==
LOC: CHSPT 09:03
PROVIDERS: PCP Family Medicine; Visit Provider Registered Nurse
DX: M54.16 Radiculopathy, lumbar region (principal)
CPT/HCPCS: 97014; 97110; 97140; 97150; 97161; G0283

== ENCOUNTER 2023-11-01 12:52 | Outpatient (CLI) | payer OTHER, SELFPAY ==
--- NOTE | ~2023-11-01 | XR_ITS ---
EXAMINATION: XR lumbar spine min 4V DATE: 11/01/2023 13:21 INDICATION: Low back pain TECHNIQUE: Anteroposterior and lateral in neutral, flexion and extension views of the lumbar spine we re obtained. COMPARISON: 10/02/2023 FINDINGS: Bone alignment is normal. There is no fracture. There is no hypermobility with flexion or e xtension. The lumbar vertebral body heights are normal. There is mild loss of intervertebral disc spa ce height at L5-S1. IMPRESSION: 1. Mild lumbar spondylosis. Reviewed, dictated and finalized at location F. CLEANER IMPRESSION: 1. Mild lumbar spondylosis.
== END 2023-11-01 12:53 | disposition home or self-care (01) ==
LOC: CHSIMG 12:55
PROVIDERS: PCP Registered Nurse; Visit Provider Neurological Surgery
DX: M54.50 Low back pain, unspecified (principal); M43.06 Spondylolysis, lumbar region
CPT/HCPCS: 72110

== ENCOUNTER 2023-12-19 02:04 | Day surgery (SDC) | payer OTHER, SELFPAY ==
[2023-12-15 14:32] VITALS: BMI 36.9
--- NOTE | 2023-12-15 14:36 | PC.NURSE ---
Report to the Outpatient Waiting Room, entrance under the green pavilion located off [facility], at time 0930 on date 12/19/23. Planned Procedure Time: 1130. Time changes happen often and if your time is changed the preop area will call you the afternoon before. - You and your visitor will be asked to self-screen and do not enter if you have any COVID symptoms. - A mask is optional within the hospital at this time. Patients may have clear liquids (water, carbonated beverages, clear teas, apple juice) until 3 hours prior to surgery with a maximum of 20 ounces. - No food from midnight until time of surgery Take the following medications with a SIP of water the morning of surgery: NONE DO NOT STOP ANY OF YOUR OTHER PRESCRIPTION MEDICATIONS PRIOR TO SURGERY ?EXCEPT THE FOLLOWING Medications to discontinue per physician: VITAMINS Date to take last dose: 12/15/23 Please no make-up, nail slovenian, hairspray, perfume, deodorant, or body powder the day of surgery. No jewelry (including any body piercings) or valuables the day of surgery, leave them at home. Please take a shower or bath the night before, or the morning of, surgery with an antibacterial soap. Wear comfortable, loose fitting clothing. - Jewelry must be removed prior to entering the operating room. Rings and piercings that are not removed may be cut off. - The hospital will not accept responsibility for valuables. - Please leave all valuables, including medications, at home the day of surgery. If you are going home after surgery, a licensed dedicated driver must drive you home. - NO public transportation without another adult if you receive anesthesia. - We recommend that an adult stay with you for 24 hours following discharge. - We also recommend that you do not drive, make important decision, drink alcoholic beverages, or take any drugs that were not prescribed by your health care provider for at least 24 hours after your discharge time. Follow any additional instructions given to you from your surgeon. If you or anyone in your household have experienced Covid symptoms in the past week, please notify your surgeon or the nurse liaison at the phone number below for possible testing. Telephone instructions given to NATASHA GARCIA and asked if any additional questions and then verbalized understanding. Patient advised to call surgeon office or pre surgery nurse liaison [phone] if any additional questions.
[2023-12-19] MEDS: ACETAMINOPHEN 500 MG TABLET 1000 MG PO (10:14)
[2023-12-19 10:20] VITALS: BP 124/71; PULSE 83; RESP 16; TEMP 36.5; O2SAT 100
[2023-12-19] MEDS: LACTATED RINGERS 1,000 ML 30 ML IV CONT (10:36)
--- NOTE | 2023-12-19 10:46 | P.PNAN_ITS ---
Anes - Initial Pre Proc Eval Procedure: Operation Date: 12/19/23 12:00 Proposed Procedures p Suction Dilation and Curettage - Naomie Malave MD Date/Time: 12/19/23 10:46 Surgeon: Naomie Malave MD Pre Op Diagnosis: Blighted Ovum Patient Data Age: 23 Gender: F Height: 1.63 m Weight: 98.4 kg Last Vital Signs Temp 97.7 F 12/19/23 10:20 Pulse 83 12/19/23 10:20 Resp 16 12/19/23 10:20 BP 124/71 12/19/23 10:20 Pulse Ox 100 12/19/23 10:20 O2 Del Method Room Air 12/19/23 10:20 Allergies Allergy/AdvReac Type Severity Reaction Status Date / Time No Known Allergies Allergy Verified 12/19/23 10:11 Home Medications Medication Instructions Recorded Confirmed Type magnesium oxide 400 mg PO DAILY 12/15/23 12/19/23 History vitamins no.159-iron 1 tablet PO DAILY 12/15/23 12/19/23 History fumarate 28 mg-folic acid 800 mcg tablet ( Vitamin) Patient hx anesthesia problems: post op nausea/vomiting Family hx anesthesia problems: none Results Review: All pre-operative results and documents have been reviewed as part of the pre- operative evaluation. [facility] Past Medical History Medical History Fibromyalgia Overweight (BMI 25.0-29.9) Social History Social History Smoking status: Never smoker Second hand tobacco smoke exposure: No Alcohol intake: never Substance use: never Substance use type: does not use Living arrangements: with family Gender identity (if verbalized by the patient): Female Sexual Orientation (if Verbalized by the Patient): Straight or Heterosexual Spiritual care concerns: No Anes - Eval Final PreProcedure Day of Procedure 12/19/23 10:46 Patient weight: obese Heart: regular rate and rhythm Lungs: clear to auscultation Airway: Mallampati scale class II Neurological: alert and oriented Last oral intake: >/= 8 hours ASA classification: II Emergent: no Anesthetic plan: proceed Anesthesia type and monitoring: general GIVS and standard monitoring Results Review: All pre-operative results and documents have been reviewed as part of the pre- operative evaluation. Informed Consent: The patient's anesthetic plan and its attendant risks and benefits were di scussed with the patient/family/POA. Questions were solicited and answers provided to the satisfaction of the patient/family/POA.
--- NOTE | 2023-12-19 10:48 | PM.IMHP ---
H&P: HPI History of Present Illness Date/Time: 12/19/23 10:48 Chief Complaint: This patient is a 23-year-old female with a missed miscarriage. We have agreed to perform suction D&C. She understands the procedure, it has been explained to her in detail. She understands that injuries may occur during the surgery. There are risk. She understands that injuries could result in hospitalization surgery, and severe illness. She understands there is a risk of hemorrhage infection. She denies any nausea, vomiting, fever, chills. She denies any chest pain or shortness of breath Review of Systems Review of Systems: All systems reviewed & are unremarkable except as noted in HPI and below Constitutional: Constitutional: Denies chills, Denies fatigue, Denies fever(s) and Denies weakness Eyes: Eyes: Denies blurry vision, Denies change in vision, Denies loss of peripheral vision, Denies loss of vision, Denies other visual disturbances and Denies eye pain ENT: Denies vertigo, Denies dizziness, Denies hearing loss, Denies mouth pain, Denies nasal obstruction, Denies neck mass and Denies neck pain Cardiovascular: Cardiovascular: Denies chest pain, Denies diaphoresis, Denies syncope, Denies leg edema and Denies dyspnea Respiratory: Respiratory: Denies chest congestion, Denies cough, Denies hemoptysis, Denies dyspnea and Denies wheezing Gastrointestinal: Gastrointestinal: Denies abdominal pain, Denies constipation, Denies diarrhea, Denies nausea and Denies vomiting Genitourinary: Genitourinary: Denies hematuria, Denies change in libido, Denies nocturia, Denies genital lesions, Denies flank pain and Denies urinary urgency Musculoskeletal: Musculoskeletal: Denies abnormal gait, Denies back pain, Denies myalgias, Denies arthralgias, Denies joint swelling, Denies muscle weakness and Denies neck pain Integumentary/Breasts: Skin/Breast: Denies swelling, Denies breast pain, Denies breast mass, Denies dry skin, Denies nipple discharge, Denies unusual bruising and Denies jaundice Neurologic: Denies Neuro-related abnormal movements, Denies Abnormal speech present, Denies abnormal gait, Denies behavioral changes, Denies confusion, Denies vertigo, Denies dizziness, Denies syncope, Denies loss of vision, Denies memory loss, Denies convulsions and Denies weakness Psychiatric: Psychiatric: Denies abnormal sleep pattern, Denies behavioral changes, Denies change in libido, Denies confusion, Denies depression, Denies anhedonia and Denies memory loss Endocrine: Endocrine: Reports no additional endocrine complaints, Denies change in libido and Denies fatigue Hematologic/Lymphatic: Hematologic/Lymphatic: Reports no additional hematologic/lymphatic complaints Allergic/Immunologic: Allergic/Immunologic: Reports no additional allergic/immunologic complaints and Denies wheezing PMFSH Past Medical History Medical History Fibromyalgia Overweight (BMI 25.0-29.9) Social History Social History Smoking status: Never smoker Second hand tobacco smoke exposure: No Alcohol intake: never Substance use: never Substance use type: does not use Living arrangements: with family Gender identity (if verbalized by the patient): Female Sexual Orientation (if Verbalized by the Patient): Straight or Heterosexual Spiritual care concerns: No Meds Home Medications and Allergies Home Medications Medication Instructions Recorded Confirmed Type magnesium oxide 400 mg PO DAILY 12/15/23 12/19/23 History vitamins no.159-iron 1 tablet PO DAILY 12/15/23 12/19/23 History fumarate 28 mg-folic acid 800 mcg tablet ( Vitamin) Allergies Allergy/AdvReac Type Severity Reaction Status Date / Time No Known Allergies Allergy Verified 12/19/23 10:11 Vital Signs Vital Signs - 24 hr 12/19/23 10:20 Temperature 97.7 F Pulse Rate 83
--- NOTE | 2023-12-19 10:50 | WPDHPUPDATE1 ---
History and Physical Update Update Date/Time: 12/19/23 10:50 History and Physical has been reviewed, including an updated exam of the patient. There are NO changes in the patient's condition. Risks, benefits, and alternatives have been discussed and questions answered. Patient agrees to proceed with procedure.
--- NOTE | 2023-12-19 11:34 | P.OP_ITS ---
Procedure Note - Detailed Date of Procedure 12/19/23 Pre-op Diagnosis Blighted Ovum Post-op Diagnosis Same Procedure Performed Suction D&C Surgeon Naomie Malave MD Anesthesia MAC Indications missed Findings normal-appearing vulva vagina and cervix to. Moderate amount of products conception within the uterus. 8 cm uterus Description of Procedure the patient was taken the operating room. She was prepped and draped in dorsal lithotomy position after induction of mac anesthesia. A speculum was placed in the vagina. Cervix grasped with tenaculum. The cervix was dilated to about 1 cm Using Ren dilators. A 8. Mauritanian curved curette was used to perform suction D&C. The curette was introduced and vacuum was applied. The curette was removed over all surfaces of the intrauterine cavity multiple times. This was done until all the surfaces were clear and had the familiar grainy texture they can be felt through the instrument. A sharp curette was then used to curettage all the surfaces. The suction cup was then reapplied 1 more time to remove any debris. The instruments were removed. The speculum and tenaculum were removed. The patient tolerated the procedure well. She was taken recovery room stable condition. Estimated Blood Loss 50 Drains No Packing No Pathology Yes Complications No immediate complications Condition Stable Disposition PACU
[2023-12-19 11:35] VITALS: BP 115/69; PULSE 93; RESP 14; O2SAT 97
[2023-12-19 12:05] VITALS: BP 120/84; PULSE 85
[2023-12-19] MEDS: LIDOCAINE HCL 1% LOCAL INJ 10 ML VIAL INFILTRATE (12:17)
== END 2023-12-19 12:31 | disposition home or self-care (01) ==
PROVIDERS: PCP Registered Nurse; Visit Provider Obstetrics & Gynecology
PROC: (CPT 59820; principal; 2023-12-19 12:00)
DX: O02.0 Blighted ovum and nonhydatidiform mole (principal)
CPT/HCPCS: 59820; 88305; A9270; J2250; J2405; J2704; J3010; J7120

== ENCOUNTER 2024-02-22 10:27 | Outpatient (CLI) | payer OTHER, SELFPAY ==
[2024-02-22 10:42] LABS: Basophils Absolute Auto 0.04 K/mm3 (0.00-0.10); Basophils Percent Auto 0.5 % (0.0-1.0); Eosinophils Percent Auto 2.4 % (1.0-6.0); Hematocrit 43.1 % (35.0-49.0); Hemoglobin 14.2 g/dL (12.0-15.0); Immature Granulocyte Absolute 0.02 K/mm3 (0.00-0.00); Immature Granulocyte Percent A 0.2 % (0.0-0.0); Lymphocytes Percent Auto 28.8 % (18.0-42.0); Mean Corpuscular HGB Conc 32.9 g/dL (32-36); Mean Corpuscular Hemoglobin 30.7 pg (27.0-31.0); Mean Corpuscular Volume 93.1 fL (78.0-102.0); Mean Platelet Volume 10.5 fl (9.2-11.8); Monocytes Absolute Auto 0.55 K/mm3 (0.10-0.90); Monocytes Percent Auto 6.6 % (2.0-11.0); Neutrophils Absolute Auto 5.11 K/mm3 (1.70-7.20); Neutrophils Percent Auto 61.5 % (50.0-70.0); Platelet Count Result 181 K/mm3 (150-420); Red Blood Count 4.63 M/mm3 (4.20-5.40); Red Cell Distribution Width 12.8 % (11.6-14.4); White Blood Count 8.3 K/mm3 (4.8-10.8)
[2024-02-22 11:33] LABS: Alanine Aminotransferase 24 U/L (14-59); Albumin Level 3.5 g/dL (3.4-5.0); Alkaline Phosphatase 55 U/L (46-116); Anion Gap 9 mmol/L (4-12); Aspartate Amino Transferase 12 U/L (15-37); Bilirubin,Total 0.2 mg/dL (0.00-1.00); Blood Urea Nitrogen 20 mg/dL (7-18); Calcium 8.1 mg/dL (8.5-10.1); Carbon Dioxide 23 mmol/L (21-32); Chloride 107 mmol/L (98-108); Cholesterol 159 mg/dL (0-200); Estimated Glomerular Filt Rate > 60; Glucose 87 mg/dL (70-99); HDL Direct 54 mg/dL (40-60); Iron 46 ug/dL (50-170); LDL Cholesterol Calculated 99 mg/dL (<130); Osmolality Calculated 289 mOsm/kg (285-295); Percent Iron Saturation 16 % (12-57); Sodium 139 mmol/L (136-145); Thyroid Stimulating Hormone 1.68 uIU/mL (0.36-3.74); Total Protein 6.3 g/dL (6.4-8.2); Triglycerides 28 mg/dL (0-150); Vitamin B12 759 pg/mL (193-986)
== END 2024-02-22 10:28 | disposition home or self-care (01) ==
PROVIDERS: PCP Registered Nurse; Visit Provider Registered Nurse
DX: R25.2 Cramp and spasm (principal); E66.9 Obesity, unspecified; R53.83 Other fatigue
CPT/HCPCS: 36415; 80053; 80061; 82607; 83036; 83540; 83550; 83735; 84443; 85025

== ENCOUNTER 2024-02-27 14:35 | Outpatient (CLI) | payer OTHER, SELFPAY ==
[2024-02-27 15:24] LABS: Alanine Aminotransferase 27 U/L (14-59); Albumin Level 3.8 g/dL (3.4-5.0); Alkaline Phosphatase 66 U/L (46-116); Anion Gap 8 mmol/L (4-12); Aspartate Amino Transferase 16 U/L (15-37); Bilirubin,Total 0.2 mg/dL (0.00-1.00); Blood Urea Nitrogen 20 mg/dL (7-18); Calcium 9.5 mg/dL (8.5-10.1); Carbon Dioxide 29 mmol/L (21-32); Chloride 104 mmol/L (98-108); Estimated Glomerular Filt Rate > 60; Glucose 74 mg/dL (70-99); Osmolality Calculated 293 mOsm/kg (285-295); Potassium 3.9 mmol/L (3.5-5.1); Sodium 141 mmol/L (136-145); Total Protein 6.7 g/dL (6.4-8.2)
== END 2024-02-27 14:36 | disposition home or self-care (01) ==
PROVIDERS: PCP Family Medicine; Visit Provider Registered Nurse
DX: E83.51 Hypocalcemia (principal)
CPT/HCPCS: 36415; 80053

== ENCOUNTER 2024-11-29 10:34 | Emergency (ER) | payer OTHER, SELFPAY ==
--- NOTE | ~2024-11-29 | US_ITS ---
EXAMINATION: US OB limited DATE: 11/29/2024 12:56 INDICATION: Vaginal bleeding. TECHNIQUE: Real-time ultrasound of the pelvis was performed. COMPARISON: None. FINDINGS: There is a single fetus in breech presentation. The placenta is fundal. heart rate is 148 beat s per minute (bpm). The amniotic fluid volume is subjectively normal. The deepest vertical pocket is 3.5 cm. The cervical length is 4.8 cm on transabdominal images, which is normal. IMPRESSION: 1. Single living fetus in breech presentation. Reviewed, dictated and finalized at location A.
[2024-11-29 10:53] VITALS: BP 119/71; PULSE 99; RESP 18; TEMP 36.4; O2SAT 100
--- OUTSIDE RECORDS SUMMARY | 2024-11-29 11:29 | XMS_ITS | Clinical Summary ---
Author Organization [facility] [address] Address [address] [place] [address] Care Team Providers Care Crepe Box Tender Name Role Phone Sawyer Augustin NP Primary Care Provi mohan Allergies No known active allergies Medications vit 11-vhpl-rzyag-d lea 27mg iron- 800 mcg-250 mg capsule Take by mouth Active DULoxetine DR (CYMBALTA) 60 mg capsule Take 1 capsule (60 mg total) by mouth daily 03/23/2024 Active Active Problems Problem Noted Date Diagnosed Date Dizziness 10/28/2022 Abnormal EKG 01/07/2022 APC (atrial premature contractions) 01/07/2022 Lipid screening 01/07/2022 Tachycardia, unspecified 01/07/2022 Palpitations 01/07/2022 Obesity with body mass index 30 or greater 09/17 Benign neoplasm of skin of lower extremity 04/15 Resolved Problems Problem Noted Date Diagnosed Date Resolved Date 39 weeks gestation of 01/07/2022 10/28/2022 Surgical History Surgery Date Site/Laterality Comments TONSILLECTOMY/ADENOIDECTOMY Medical History Medical History Date Comments Fibromyalgia Endometriosis PCOS (polycystic ovarian syndrome) Family History Medical History Relation Name Comments Heart disease Father COPD Mother Hyperlipidemia Mother Hypertension Mother Relation Name Status Comments Brother Alive Father Alive Mother Alive Sister Alive Social History Tobacco Use Types Packs/Day Years Used Date Smoking Tobacco: Never Smokeless Tobacco: Never Tobacco Cessation:Counseling Given: Not Answered AUDIT-C Answer Date Recorded Q1: How often do you have a drink containing alc ohol? 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 Gender Identity Not on file Sexual Orientation Not on file Obstetrics History Last Filed Vital Signs Vital Sign Reading Time Taken Comments Blood Pressure 116/84 04/23/2024 9:42 AM CDT Pulse 84 04/23/2024 9:42 AM CDT Temperature - - Respiratory Rate 16 04/23/2024 9:42 AM CDT Oxygen Saturation 99% 04/14/2023 11:30 AM CDT Inhaled Oxygen Concentration - - Weight 100.7 kg (222 lb) 04/23/2024 9:42 AM CDT Height 162.6 cm (5' 4 ) 04/23/2024 9:42 AM CDT Body Mass Index 38.11 04/23/2024 9:42 AM CDT Plan of Treatment Health Maintenance Due Date Last Done Comments Cervical Cancer Screening 2000 Depression Screening 2000 Hepatitis C Screening 2000 HPV Vaccines (1 - 3-dose series) 02/26/2015 Regular Well Visit/Exam 18-64 02/26/2018 Influenza Vaccine (#1) 2024 , 07/05/2017, 07/18/2016, Additional history exists DTaP/Tdap/Td Vaccine (8 - Td or Tdap) 01/19/2032 01/18/2022, 02/28/2011, 12/16/2004, Additional history exists Hepatitis B Screening Completed 02/28/2001 , 02/28/2001, 2000, Additional history exists Pneumococcal vaccine <65 Completed 001, 2000, 2000, Additional history exists Varicella Vaccines Completed 02/28/2011, 02/28/2001 Insurance [facility] Care Teams Crepe Box Tender Relationship Specialty Start Date End Date Sawyer Augustin NP [address] [id number] PCP - General Nurse Practitioner 03/29/23
--- OUTSIDE RECORDS SUMMARY | 2024-11-29 11:29 | XMS_ITS | Referral Summary ---
Author Organization 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
--- OUTSIDE RECORDS SUMMARY | 2024-11-29 11:29 | XMS_ITS | Clinical Summary ---
Author Organization [facility] Address [address] [place] [address] Care Team Providers Care Handle Finisher Name Role Phone Garcia Ordonez Primary Care Provider Source Comments [facility],non-owned Affiliates and Associated Physician Practices is amultiple site organization consisting of ambulatory clinics and hospital sitesin [place], [place], [place] and [place]. This disclosure is being madepursuant to the Care Everywhere program and may not contain all information available regarding this patient. Last updated 18.[facility] Allergies No known active allergies Medications Be aware that medications may not be up to date on this document. Always verify current medications with the patient. No known medications Active Problems No known active problems Social History Tobacco Use Types Packs/Day Years Used Date Smoking Tobacco: Never Alcohol Use Standard Drinks/Week Comments No 0 (1 standard drink = 0.6 oz pur e alcohol) Sex and Gender Information Value Date Recorded Sex Assigned at Not on file Gender Identity Not on file Sexual Orientation Not on file Plan of Treatment Health Maintenance Due Date Last Done Comments PAP SMEAR 2000 HIV SCREENING 02/26/2015 HPV VACCINE (1 - 3-dose series) 02/26/2015 CHLAMYDIA/GONORRHEA SCREENING 2016 HEPATITIS C SCREENING 02/22/2018 DTAP/TDAP/TD VACCINES (1 - Tdap) 02/26/2019 HEPATITIS B VACCINE (1 of 3 - 19+ 3-dose series) 02/26/2019 COVID-19 VACCINE (2023-2 5 season) 2024 INFLUENZA VACCINE (#1) 2024 06/17/2022 DEPRESSION SCREENING 09/04/2024 ZOSTER VACCINE (1 of 2) 02/26/2050 HIB VACCINE Aged Out No longer eligi ble based on patient's age to complete this topic MENINGOCOCCAL (Group B) VACC INE SHARED DECISION-MAKING Aged Out No longer eligibl e based on patient's age to complete this topic MENINGOCOCCAL GROUPS A/C/Y/W VACCINE Aged Out No longer eligible b ased on patient's age to complete this topic PNEUMOCOCCAL VACCINE Aged Out No long er eligible based on patient's age to complete this topic Care Teams Handle Finisher Relationship Specialty Start Date End Date Garcia Ordonez PA [address] [place] [phone] PCP - General 07/18/22
--- OUTSIDE RECORDS SUMMARY | 2024-11-29 11:29 | XMS_ITS | Data Portability ---
Author Organization [facility] [place] Address [address] [place] [address] [place] [address] Care Team Providers Care Exercise Equipment Specialist Name Role Phone [facility] Primary Care Provider Assessment Encounter Date Assessment Date Assessment LastModified by Organization Details LastModified Time 09/30/2024 09/30/2024 Patient is ___weeks . Discussed plan. [email or web address] Not available 09/30/2024 17:11:15 11/26/2024 11/26/2024 Patient is _16_weeks . Discussed plan. [email or web address] Not available 11/26/2024 11:11:11 Plan of Treatment Reminders Order Date Submit Date Provider Last Modified By Organization Details Last Modified Time Details Appointments U/S OB BASELIN E 2024 10:00A M ULTRASOUND Not available Not available Not available OB ROUTINE 2024 11:00A M SILVINO HANNAH MD Not available Not available Not available Lab drug screen, urine 2024 025 [email or web address] [address], [address], [place], [address], 10/29/2024 13:16:45 Referral None recorde d. Procedures None recorde d. Surgeries None recorde d. Imaging US, obstetr ic, nuchal translu cency 2024 025 [email or web address] [address], [address], [place], [address], 10/29/2024 23:00:35 Medication Orders None recorde d. Patient TargetsNo targets recorded. Patient InstructionsNo instructions recorded. Reason for Referral None Reported. Results Created Date Observation Date Name Description Value Unit Range Abnormal Flag Note LastModifiedBy Organization Detail LastModifiedTime 11/04/1911/03/2024 [UNIT Y] ANEUP LOIDY NIPT fraction 9.6% normal Not Available [facility] [address] [facility], [place], [address], 11/03/2024 12:57:32 11/04/19 25 11/03/2024 [UNIT Y] ANEUP LOIDY NIPT 22Q11.2 microdeletio n LOW RISK <1 in 10,000 normal Not Available [facility] [address] [facility], [place], [address], 11/03/2024 12:57:32 11/04/19 25 11/03/2024 [UNIT Y] ANEUP LOIDY NIPT sex chromosome aneuploidy NOT DETECT ED normal Not Available [facility] [address] [facility], [place], [address], 11/03/2024 12:57:32 11/04/19 25 11/03/2024 [UNIT Y] ANEUP LOIDY NIPT monosomy X LOW RISK <1 in 10,000 normal Not Available [facility] [address] [facility], [place], [address], 11/03/2024 12:57:32 11/04/19 25 11/03/2024 [UNIT Y] ANEUP LOIDY NIPT trisomy 13 LOW RISK <1 in 10,000 normal Not Available [facility] [address] [place], [address], 11/03/2024 12:57:32 11/04/19 25 11/03/2024 [UNIT Y] ANEUP LOIDY NIPT trisomy 18 LOW RISK <1 in 10,000 normal Not Available [facility] [address] [place], [address], 11/03/2024 12:57:32 11/04/19 25 11/03/2024 [UNIT Y] ANEUP LOIDY NIPT trisomy 21 LOW RISK <1 in 10,000 normal Not Available [facility] [address] [facility], [place], [address], 11/03/2024 12:57:32 11/04/19 25 11/03/2024 [UNIT Y] ANEUP LOIDY NIPT sex FEMALE normal Not Available [facility] [address] [facility], [place], [address], 11/03/2024 12:57:32 11/04/19 25 11/03/2024 [UNIT Y] ANEUP LOIDY NIPT gestation SINGLE TON normal Not Available [facility] [address] [facility], [place], [address], 11/03/2024 12:57:32 11/04/19 25 11/03/2024 [UNIT Y] ANEUP LOIDY NIPT for detailed report, see pdf See PDF normal Not Available [facility] [address] [facility], [place], [address], 11/03/2024 12:57:32 09/16/19 25 09/16/2024 BHCG, QUANT ITATI VE B-HCG 84003. 0 mIU/m L This assay was perfo rmed using [employer] ratio n reage nts and test kits. Value s obtai edith with other assay metho ds or kits canno t be used inter wetzel eably . Refer ence Range s: Non-p regna nt, preme nopau ivan women : 0.0-5 .3 mIU/m L Postm enopa usal women : 0.0-7 .0 mIU/m L Karina l Pregn matthieu: Gesta ana maria l Age bHCG Conc. - mIU/m L 3 Weeks 5.8 - 71.7 4 Weeks 9.5 - 750 5 Weeks 217-7 138 6 Weeks 158 - 31,79 5 7 Weeks 3,697 - 162,5 63 8 Weeks 32,06 5 - 149,5 71 9 Weeks 63,80 3 - 151,4 10 10 Weeks 46,50 9 - 186,9 77 12 Weeks 27,83 2 - 210,6 12 14 Weeks 13,95 0 - 62,53 0 15 Weeks 12,03 9 - 70,97 1 16 Weeks 9,040 - 56,45 1 17 Weeks 8,175 - 55,86 8 18 Weeks 8,099 - 58,17 6 Not Available [facility] (Lab) [address], [place], [address], 09/17/2024 06:40:32 09/19/19 25 09/19/2024 US, obste tric, trans vagin al No observ ation [facility] [address], [place], [address], 09/19/2024 18:31:42 09/19/19 25 09/19/2024 US, obste tric, trans vagin al No observ ation record ed. [email or web address] [address], [place], [address], 09/19/2024 21:55:24 09/30/19 25 09/30/2024 US, obste tric, 1st trime ster No observ ation record ed. [email or web address] [address], [place], [address], 10/03/2024 15:03:12 10/29/19 25 10/29/2024 US, obste tric, nucha l trans lucen cy No observ ation record ed. [email or web address] [place] [address], [place], [address], 10/29/2024 13:46:36 10/29/19 25 10/29/2024 US, obste tric, follo w-up No observ ation record ed. [email or web address] [address], [place], [address], 10/31/2024 00:22:00 Result Notes None recorded. Problems Name Problem SNOMED Code Status Onset Date Resolution Date Notes Provider Name and Address Organization Details Recorded Time Pregnanc y test negative 999547724 Completed 201903/05/2021 Encounte r for pregnanc y test, result negative ;Practic e ID: 0001 Bell Godoy MD [address], [place], [address], [facility] 10:30:22 Finding of menstrua l bleeding Completed 201903/05/2021 Excessiv e and frequent menstrua tion with regular cycle;Pr actice ID: 0001 Bell Godoy MD [address], [place], [address], [facility] 10:30:06 Pelvic and perineal pain 262812546 Completed 201903/05/2021 Pelvic and perineal pain;Pra ctice ID: 0001 Bell Godoy MD [address], [place], [address], [facility] 10:30:20 Endometr iosis (clinica l) 930949826 Completed 201804/23/2021 Endometr iosis, unspecif ied;Prac josiane ID: 0001 Yadira guevara, [facility] 10:27:05 Steriliz ation procedur e Completed 201803/05/2021 Encounte r for steriliz ation;Pr actice ID: 0001 Bell Godoy MD [address], [place], [address], [facility] 10:31:09 Chronic intersti tial cystitis 950883615 Completed 201804/23/2021 Intersti tial cystitis (chronic ) without hematuri a;Practi ce ID: 0001 Yadira guevara, [facility] 10:26:58 Deep pain on intercou rse 687750506 Completed 201804/23/2021 Deep dyspareu vish;Prac josiane ID: 0001 Yadira guevara, [facility] 10:27:03 Pain in female genitali a Completed 201803/05/2021 Dysmenor sudha, unspecif ied;Prac josiane ID: 0001 Bell Godoy MD [address], [place], [address], [facility] 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 10:30:29 Urinary tract infectio us disease 00591328 Completed 201904/23/2021 Urinary tract infectio n, site not specifie d;Practi ce ID: 0001 Yadira guevara, [facility] 10:27:07 Acute vaginiti s 48261154 Completed 201903/05/2021 Acute vaginiti s;Practi ce ID: 0001 Bell Godoy MD [address], [place], [address], [facility] 10:29:44 Evaluati on finding Completed 201903/05/2021 Hematuri a, unspecif ied;Prac josiane ID: 0001 Bell Godoy MD [address], [place], [address], [facility] 10:29:56 Finding of regulari ty of menstrua l cycle Completed 201503/05/2021 Irregula r menstrua tion, unspecif ied;Prac josiane ID: 0001 Bell Godoy MD [address], [place], [address], [facility] 1 10:30:09 Syphilis test finding 634917291 Completed 201503/05/2021 Encntr screen for infectio ns w sexl mode of transmis s;Practi ce ID: 0001 Bell Godoy MD [address], [place], [address], [facility] 1 10:30:36 Uses combined oral contrace ption 807746471 Completed 201504/23/2021 Encounte r for initial prescrip tion of contrace ptive pills;Pr actice ID: 0001 Yadira guevara, [facility] 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 1 10:30:25 Body mass index 30+ - obesity 449000685 Completed 201604/23/2021 Body mass index (BMI) 30.0-30. 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 1 10:30:12 Pregnanc y 91616689 Completed 202108/25/2022 Malu guevara, [facility] 5 12:50:55 Fibromya lgia 815965752 Completed Marleni guevara, [facility] 2 17:01:58 History of endometr iosis [id number] 1317888 Completed Marleni guevara, [facility] 2 17:01:58 Tachycar nate 9523434 Completed RPT THYROID PANEL @ 20WK!! 24 hr holter abnormal - cardio Dr. Vizcaino - pt has echo in February and follow up in Apr, MD states nothing until PP. Much improved at 33 weeks Marleni guevara, [facility] 2 17:01:58 Complete breech presenta tion 47543337 Completed Bell Godoy MD [address], [place], [address], [facility] 2 15:34:25 Pregnanc y 83496797 Active 2024 Malu guevara, [facility] 5 12:50:54 Problem Notes None recorded. Procedures Surgical History Date Name Laterality Status Provider Name and Address Organization Details Recorded Time 4 Dilation and Curettage completed Malu Israel [facility] 12/25/2023 10:24:29 2 Date of Last Pap Smear completed Yadira [facility] 12/03/2021 10:16:44 0 LAPAROSCOPY, DIAGNOSTIC (SURG) completed [facility] 02/08/2020 09:20:23 0 tonsilectomy/a denoids completed [facility] 04/23/2021 10:28:08 Imaging Results Imaging Date Name Status LastModified by Organization Details LastModified Time 09/19/2024 US, obstetric, transvaginal completed mani [place] [address], [place], [address], 09/19/2024 18:31:42 09/19/2024 US, obstetric, transvaginal completed [email or web address] [address], [place], [address], 09/19/2024 21:55:24 09/30/2024 US, obstetric, 1st trimester completed [email or web address] [address], [place], [address], 10/03/2024 15:03:12 10/29/2024 US, obstetric, nuchal translucency completed harris [place] [address], [place], [address], 10/29/2024 13:46:36 10/29/2024 US, obstetric, follow-up completed [email or web address] [address], [place], [address], 10/31/2024 00:22:00 Procedure Notes None recorded. Medical Equipment None Reported. Allergies No known drug allergies Medications Name Sig Start Date Stop Date Status Note LastModified by Organization Details LastModified Time cyclobenz aprine 10 mg tablet take 1 tablet by oral route 3 times every day for back pain 02/12 completed Not Available Not Available Not Available venlafaxi ne ER 37.5 mg capsule,e xtended release 24 hr take 1 capsule by oral route every day with food 02/12 completed Not Available Not Available Not Available venlafaxi ne ER 75 mg capsule,e xtended release 24 hr 02/12 completed Not Available Not Available Not Available Apri 0.15 mg-0.03 mg tablet TAKE 1 TABLET BY MOUTH EVERY DAY 06/16 completed Jessica ghoshs this canceled as she feels it is causing her anxiety/ depressi on. She will schedule an appt if she changes her mind. Not Available Not Available Not Available nystatin 100,000 unit/gram topical ointment 02/12 completed Not Available Not Available Not Available fluconazo le 150 mg tablet TAKE 1 TABLET BY MOUTH ROUTE NOW, REPEAT IN 7 DAYS 11/16 completed Not Available Not Available Not Available hydrocodo ne 5 mg-acetam inophen 325 mg tablet 02/12 completed Not Available Not Available Not Available phenazopy ridine 200 mg tablet take 1 tablet by oral route 2 times every day after meals as needed 02/12 completed Not Available Not Available Not Available metronida zole 0.75 % (37.5 mg/5 gram) vaginal gel INSERT 1 APPLICAT ORFUL VAGINALL Y EVERY DAY AT BEDTIME FOR 5 NIGHTS 11/16 completed Not Available Not Available Not Available ondansetr on HCl 4 mg tablet TAKE 1 TABLET BY MOUTH EVERY 8 HOURS NEEDED FOR NAUSEA AND VOMITING 09/30 completed Not Available Not Available Not Available metformin 850 mg tablet TAKE 1 TABLET BY MOUTH DAILY 09/30 completed Not Available Not Available Not Available metronida zole 500 mg tablet TAKE 1 TABLET BY MOUTH EVERY 12 HOURS 09/17 completed Not Available Not Available Not Available Voltaren- XR 100 mg tablet,ex tended release take 1 tablet by oral route every day 05/30 completed Prescrib jerry Ocampo e: No Locat ion: [facility] odify By: [email or web address] ich Samanthao unter DateTime : 05/17/20 02:30:00 PM Not Available Not Available Not Available triamcino lone acetonide 0.1 % topical cream 02/12 completed Not Available Not Available Not Available nystatin- triamcino lone 100,000 unit/gram -0.1 % topical ointment apply by topical route 2 times every day to the affected area(s) 11/11 completed Prescrib ed Elsewher e: No Locat ion: [facility] odify By: [email or web address] z Encoun ter DateTime : 10/09/19 02:15:00 PM Not Available Not Available Not Available cephalexi n 500 mg capsule 02/12 completed Not Available Not Available Not Available triamcino lone acetonide 0.1 % topical ointment 02/12 completed Not Available Not Available Not Available clotrimaz ole-betam ethasone 1 %-0.05 % topical cream APPLY TO THE AFFECTED AND SURROUND ING AREAS OF SKIN BY TOPICAL ROUTE 2 TIMES PER DAY IN THE MORNING AND EVENING FOR 2 WEEKS 12/03 completed Not Available Not Available Not Available bupropion HCl 75 mg tablet take 1 tablet by oral route 3 times every day 01/13 completed Prescrib ed Elsewher e: Yes Loca tion: [facility] odify By: [email or web address] Encounte r DateTime : 11/25/19 10:45:00 AM Not Available Not Available Not Available diclofena c sodium 75 mg tablet,de layed release take 1 tablet by oral route 2 times every day as needed 02/12 completed Not Available Not Available Not Available gabapenti n 100 mg capsule TAKE 1 CAPSULE BY MOUTH THREE TIMES A DAY 12/24 completed Not Available Not Available Not Available ibuprofen 600 mg tablet TAKE 1 TABLET BY MOUTH EVERY 6 HOURS NEEDED FOR CRAMPING 11/08 completed Not Available Not Available Not Available methylpre dnisolone 4 mg tablets in a dose pack TAKE 6 TABLETS ON DAY 1 DIRECTED ON PACKAGE AND DECREASE BY 1 TAB EACH DAY FOR A TOTAL OF 6 DAYS 12/24 completed Not Available Not Available Not Available Microgest in Fe (28) 1.5 mg-30 mcg (21)/75 mg (7) tablet take 1 tablet by oral route every day 01/18 completed Prescrib ed Elsewher e: No Locat ion: [facility] odify By: daniel garner DateTime : 11/03/19 01:00:00 PM Not Available Not Available Not Available cyclobenz aprine 5 mg tablet TAKE 1 TABLET BY MOUTH THREE TIMES A DAY NEEDED FOR MUSCLE SPASM 12/24 completed Not Available Not Available Not Available June.5 (21) 1.5 mg-30 mcg tablet Take 1 tablet every day by oral route. 02/12 completed Not Available Not Available Not Available bupropion HCl XL 300 mg 24 hr tablet, extended release 02/12 completed Not Available Not Available Not Available bupropion HCl XL 150 mg 24 hr tablet, extended release TAKE 1 TABLET BY MOUTH EVERY DAY 01/13 completed Not Available Not Available Not Available nitrofura ntoin monohydra te/macroc rystals 100 mg capsule take 1 capsule by oral route every 12 hours with food 02/12 completed Not Available Not Available Not Available duloxetin e 20 mg capsule,d elayed release TAKE 2 CAPSULES BY MOUTH DAILY 09/30 completed Not Available Not Available Not Available duloxetin e 30 mg capsule,d elayed release TAKE 1 CAPSULE BY MOUTH EVERY DAY 12/24 completed Not Available Not Available Not Available duloxetin e 60 mg capsule,d elayed release TAKE 2 CAPSULES BY MOUTH DAILY 09/30 completed Not Available Not Available Not Available ketorolac 30 mg/mL injection syringe inject 1 millilit er by intramus cular route one time, pt is to report to clinic for injectio n 10/09 completed Prescrib ed Elsewher e: No [facility] odify By: [email or web address] z Yocasta plunkett DateTime : 04/19/20 04:16:38 PM Not Available Not Available Not Available calcium 09/30 completed Not Available Not Available Not Available Vitamin D 09/30 completed Not Available Not Available Not Available active Not Available Not Avai lable Not Available venlafaxi ne ER 150 mg tablet,ex tended release 24 hr 02/12 completed Not Available Not Available Not Available venlafaxi ne ER 75 mg tablet,ex tended release 24 hr 02/12 completed Not Available Not Available Not Available bupropion HBr 04/14 completed Not Available Not Available Not Available Robbin Fe 09/23 (28) 1 mg-20 mcg (21)/75 mg (7) tablet TAKE ONE TABLET BY MOUTH EVERY DAY 02/12 completed Not Available Not Available Not Available Robbin 24 Fe 1 mg-20 mcg (24)/75 mg (4) tablet take 1 tablet by oral route every day 03/15 completed No insuranc e at the current time Not Available Not Available Not Available Taytulla 01/13 completed Not Available Not Available Not Available Orilissa 150 mg tablet take 1 tablet by oral route every day at approxim ately the same time each day 02/27 completed Prescrib ed Elsewher e: No Locat ion: [facility] odify By: john hou DateTime : 02/22/20 09:04:41 AM Not Available Not Available Not Available Orilissa 200 mg tablet take 1 tablet by oral route 2 times every day at approxim ately the same times each day 05/30 completed Prescrib ed Elsewher e: No Locat ion: [facility] odify By: earl clomenares DateTime : 03/01/20 02:37:09 PM Not Available Not Available Not Available Vitals Date Recorded Body height Body mass index (BMI) Body weight Systolic blood pressure Diastolic blood pressure Provider Name and Address Organization Details Last Updated DateTime 09/30/2024 160.66 cm 37.8 kg/m2 34028.36 g 119 mm[Hg] 76 mm[Hg] Deisy Clark [facility] 5 16:37:42 Date Recorded Body height Body mass index (BMI) Body weight Systolic blood pressure Diastolic blood pressure Provider Name and Address Organization Details Last Updated DateTime 10/29/2024 160.66 cm 38 kg/m2 38311.95 g 124 mm[Hg] 82 mm[Hg] Malu Israel [facility] 5 12:46:13 Date Recorded Body height Body mass index (BMI) Body weight Systolic blood pressure Diastolic blood pressure Provider Name and Address Organization Details Last Updated DateTime 11/26/2024 160.66 cm 39 kg/m2 567047.5 1 g 127 mm[Hg] 83 mm[Hg] Yadira Dai [facility] 5 10:59:02 Social History Question Answer Notes LastModified by Organizat ion Details LastModified Time Tobacco Smoking Status Never Smoker Pee Prado paola, [facility] 11/08/2022 15:42:49 Do You Have An Advance Directive? No [email or web address] Information not available 12/03/2021 What Is Your Level Of Alcohol Consumption? None [email or web address] Information not available 12/03/2021 If You Are , What Was Your Level Of Alcohol Consumption Prior To ? None [email or web address] Information not available 11/08/2022 Are You Blind Or Do You Have Difficulty Seeing? No [email or web address] Information not available 04/23/2021 What Is Your Level Of Caffeine Consumption? Occasional [email or web address] Information not available 04/23/2021 In The 14 Days Before Symptom Onset, Have You Had Close Contact With A Laboratory-confir med COVID-19 While That Case Was Ill? No Information not available 04/23/2021 In The 14 Days Before Symptom Onset, Have You Had Close Contact With A Person Who Is Under Investigation For COVID-19 While That Person Was Ill? No [email or web address] Information not available 04/23/2021 Have You Been To An Area Known To Be High Risk For COVID-19? No [email or web address] Information not available 04/23/2021 Are You Deaf Or Do You Have Serious Difficulty Hearing? No [email or web address] Information not available 04/23/2021 What Type Of Diet Are You Following? REGULAR [email or web address] Information not available 04/23/2021 What Is The Highest Grade Or Level Of School You Have Completed Or The Highest Degree You Have Received? 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 Yes [email or web address] Information not available 12/03/2021 Have You Ever Been Counseled For Unhealthy Alcohol Use? No [email or web address] Information not available 11/08/2022 Do You Use Protection During Sex? Usually [email or web address] Information not available 12/03/2021 Do You Use Your Seat Belt Or Car Seat Routinely? Yes [email or web address] Information not available 04/23/2021 Do You Have Smoke And Carbon Monoxide Detectors In Your Home? Yes [email or web address] Information not available 04/23/2021 How Much Tobacco Do You Smoke? No [email or web address] Information not available 12/03/2021 Do You Feel Stressed (tense, Restless, Nervous, Or Anxious, Or Unable To Sleep At Night)? [id number] [email or web address] Information not available 04/23/2021 Do You Use Any Illicit Or Recreational Drugs? No [email or web address] Information not available 04/23/2021 Do You Use Sunscreen Routinely? No [email or web address] Information not available 12/03/2021 Has Tobacco Cessation Counseling Been Provided? No [email or web address] Information not available 11/08/2022 Have You Used IV Drugs? No Information not available 12/03/2021 Do You Or Have You Ever Used Any Other Forms Of Tobacco Or Nicotine? No [email or web address] Information not available 11/08/2022 Sex: Female Functional Status Question Answer Note LastModified by Organizat ion Details LastModified Time Do you have difficulty walking or climbing stairs? No [email or web address] Information not available 11/08/2022 Are you able to walk? YESWOREST [email or web address] Information not available 04/23/2021 Are you able to care for yourself? Yes [email or web address] Information not available 11/08/2022 Do you have difficulty dressing or bathing? No [email or web address] Information not available 11/08/2022 What is your exercise level? Moderate [email or web address] Information not available 12/03/2021 Mental Status None recorded. Family History Relationship Description Onset Age of this Age Resolved Age Notes LastModified by Organization Details LastModified Time Mother Leah copelandia [email or web address] Not available 2021 11:03:07 Mother Hypertensive disorder [email or web address] Not available 2021 11:03:07 Mother Asthma Not available 03/18/2022 11:03:07 Maternal Grandfather Hypercholest erolemia [email or web address] Not available 2021 11:03:07 Maternal Grandfather Diabetes mellitus [email or web address] Not available 2021 11:03:07 Maternal Grandfather Malignant neoplastic disease esopho geal cancer Not available 03/18/2022 11:03:07 Maternal Grandmother Disorder of thyroid gland [email or web address] Not available 2021 11:03:07 Maternal Grandmother Hypercholest erolemia [email or web address] Not available 2021 11:49:49 Maternal Grandmother Hypertensive disorder [email or web address] Not available 2021 11:49:49 Paternal Grandmother Carcinoma in situ of urinary bladder [email or web address] Not available 2024 10:26:13 Medical History Condition Response Allergies (Food, seasonal, environmental ) N Other Y Breast Cancer N Drug/Latex Allergies/Reactions N Blood Transfusion N Dermatologic Disorders N Lung Disease N Defects or Inherited Disease N Breast Problem N Gestational Diabetes N Hematologic disorders N Anesthesia Complications N History of STI N Deep Vein Thrombosis N Polycystic ovary syndrome Y Anxiety Disorder N Autoimmune disease N Arthritis N Infertility N Polyps N Acid Reflux (GERD) N History of abnormal pap N Cancer N Stroke N Varicosities N Neurologic/Epilepsy N Endometriosis Y High Cholesterol N Headaches N Fibromyalgia Y Kidney Disease N Heart Problems N Kidney or Bladder Problems N Thyroid Problems N GI Problems N Eating Disorder N Anemia N Art (IVF or FET) N Psychiatric Illness N Ovarian Cancer N Diabetes N Pulmonary (TB, Asthma) N Hepatitis/Liver Disease N No Past Medical History N Eczema N Urinary Tract Infection N Abuse/Domestic Violence N Asthma N Trauma/Violence N Depression/ depression N Heart Disease N Pre-Eclampsia N Hypertension N Osteoporosis N Thrombophilias N Gynecological History Statement/Question Response Flow Heavy Date of Last Mammogram Date of LMP On BCP's at Conception? N N Was last menstrual period normal Y STIs/STDs N HPV Vaccine N Duration of Flow (days) 5 Current Control Method Are cycles usually normal Y Date of Last Colonoscopy Sexually Active? Y Menses Monthly Y Date of DEXA bone scan Age of first menstrual cycle 14 Date of Last Pap Smear 12/03/2021 Sexual Problems? N LMP Unknown N Obstetrics History GPAL:G 4 P 1 0 2 1 Type Value Full Term 1 Spontaneous 2 Living 1 Total 4 Immunizations Vaccine Type Date Status Note Provider David avalos and Address Organization Details Recorded Time Influenza, split virus, quadrivalent, PF 06/07/2022 completed Tg Erivn [facility] 02/07/2024 17:27:44 Past Encounters Encounter ID Performer Location Encounter Start Date Encounter Closed Date Diagnosis/Indication Diagnosis SNOMED-CT Code Diagnosis ICD10 Code Diagnosis Note [id number] [address] [address] 01/06/2020 12:07:27 01/06/2020 12:23:07 test negative 135403186 Z32.02 Abnormal u terine bleeding [id number] 9100 N93.9 Hx of pelvic pain (severe dysmenorrh ea) for which she is scheduled to have surgery 02/05/2020. She has been on current pill >1yr. She has done well up to this point but her BTB has lasted almost the entire month. We discussed trial of new BCP which pt would prefer for now. Counseled on medication R/B's, Most common side effects, & use. All questions were answered to patient satisfacti on. She will start new BCP tomorrow. Samples given x 2 pack [place] Denies need for STD/vagini tis screening today. If this issue continues consider sending vag cultures & pursuing serum labs. Time spent in visit is a total of 15 mins with at least 50% of visit consisting of counseling and review of plan of care. [id number] [facility] [address] [address] 01/28/2020 10:24:03 01/28/2020 12:12:16 Contraception care management [id number] Z30.9 Patient is here today for medication check. She voices she would like to stop her BCP's for now. Wants to give her body a break. She is scheduled to have surgery for pelvic pain 02/05/2020. We discussed coming off control. Will need to use condoms if SA and preventing . She will stop control today. May have some BTB/spotti ng. THis would resolve. Has f/u appt 02/02 Dr. Malave. If any concerns can discuss at that time. No further questions. Time spent in visit is a total of 15 mins with at least 50% of visit consisting of counseling and review of plan of care. [id number] Barry Malave MD [facility] [address] [address] 02/03/2020 09:44:38 02/12/2020 12:43:29 Pain in pelvis 91949149 R10.2 Patient is a 19-year-ol d female with pelvic pain. We have agreed to perform diagnostic laparoscop y. I described the procedure to the patient in detail. She understand s the risks, benefits, and alternativ es. She has completed the informed consent process and is ready to proceed. [id number] Barry Malave MD [facility] [address] [address] 02/13/2020 12:01:09 02/13/2020 18:04:17 Pain in pelvis 47439755 R10.2 This patient is a 19 old female presents forpostopf ollow-up. She had alaparosco pic resection of what appeared to be endometrio sis. The pathology report did not supportthe diagnosis of endometrio sis..She does feel relief from her pain.She has no complaints . She has no tenderness at her incision sites.Her incisions are clean dry and intact. She will follow-up as needed. She is going to continue oral contracept diamond pills astreatmen t for pelvic painand possible endometrio sis. [id number] Barry Malave MD [facility] [address] [address] 04/14/2020 15:42:51 04/14/2020 16:43:11 Pain in pelvis 30073188 R10.2 this patient is a 20-year-ol d female with longstandi ng pelvic pain. We spent over 25 minutes face-to-fa ce discussing various aspects of her care. We talked about her symptoms. We talked about interstiti al cystitis. She is educated on polycystic ovarian syndrome, interstiti al cystitis, and endometrio sis. She has symptoms of these 3 phenomenon . We talked about treatment options and the evaluation of each. We agreed to pelvic ultrasound at this time. She will return to discuss those results and consider the next step in this process. [id number] Judi Uriarte [facility] [address] [address] 04/28/2020 16:06:21 04/28/2020 16:47:07 Pain in pelvis 74422479 R10.2 this patient is a 20-year-ol d female with longstandi ng pelvic pain. We spent over 25 minutes face-to-fa ce discussing various aspects of her care. We talked about her symptoms. We talked about interstiti al cystitis. She is educated on polycystic ovarian syndrome, interstiti al cystitis, and endometrio sis. She has symptoms of these 3 phenomenon . We talked about treatment options and the evaluation of each. We agreed to pelvic ultrasound at this time. She will return to discuss those results and consider the next step in this process. [id number] Barry Malave MD [place] [address] [address] 04/28/2020 16:06:48 04/29/2020 21:20:55 Pain in pelvis 61335054 R10.2 this patient is a 20-year-ol d female presents for pelvic pain. This is a follow-up visit. She had a pelvic ultrasound . She had diagnostic laparoscop y a couple of months ago. During the laparoscop y I felt endometrio sis was present. Endometrio sis was not identified on biopsy results. Her pelvic ultrasound today is normal. She continues to have pain. We discussed ways to proceed with her evaluation ,treatment and therapy. we discussed physical therapy, pelvic pain specialist , evaluation for interstiti al cystitis. We will begin with physical therapy. We will arrange a physical therapy consultati on. We spent 15 minutes face-to-fa ce. All of this was counseling . [id number] Bell Godoy MD [place] [address] [address] 01/13/2021 11:50:40 01/13/2021 14:53:14 test negative [id number] Z32.02 Gynecologi c examination 50502465 Z01.419 Venereal d isease screening 240675099 Z11.3 [id number] Bell Godoy MD [place] [address],[place] [address] 03/05/2021 10:11:37 03/05/2021 10:45:10 Contraception care management 275045975 Z30.9 Initial pr escription of oral contraception 715387753 Z30.011 [id number] Maryuri Goodwin [facility] [address] [address] 04/23/2021 10:13:56 04/23/2021 14:17:59 Vaginitis 83352655 N76.0 [id number] Bell Godoy MD [place] [address],[place] [address] 09/17/2021 14:10:04 09/17/2021 14:32:01 Vaginitis 10148254 N76.0 [id number] [facility] [address],[place] [address] 11/05/2021 11:52:26 11/05/2021 12:44:16 Threatened miscarriage 09988513 O20.0 [id number] Maryuri Goodwin [facility] [address],[place] [address] 12/03/2021 09:20:50 12/03/2021 11:42:35 test positive 716389331 Z32.01 Gynecologi c examination 91346327 Z01.419 Amenorrhea 06240544 N91. 2 [id number] Lena Sun [place] [address],[place] [address] 12/03/2021 09:20:29 12/03/2021 10:15:11 [id number] Barry Malave MD [place] [address],[place] [address] 12/27/2021 15:17:10 12/27/2021 16:32:03 Routine care [id number] Z34.[id number] [facility] [address],[place] [address] 12/27/2021 15:17:32 12/27/2021 17:58:03 screening 202963410 Z36.82 [id number] Lena Sun [place] [address],[place] [address] 01/26/2022 16:06:42 01/26/2022 17:40:02 screening 464633215 Z36.3 [id number] Barry Malave MD [place] [address],[place] [address] 01/26/2022 16:07:30 01/26/2022 22:29:12 [id number] Lena Sun [place] [address],[place] [address] 02/24/2022 16:15:29 02/24/2022 17:27:51 screening 219023375 Z36.2 Z3A.22 [id number] Barry Malave MD [facility] [address],[place] [address] 02/24/2022 16:15:55 02/24/2022 17:40:54 Routine care 887023387 Z34.02 [id number] Barry Malave MD [place] [address],[place] [address] 03/18/2022 10:56:31 03/18/2022 12:14:53 Routine care 386325583 Z34.02 [id number] [facility] [address] [address] 04/04/2022 10:16:50 04/04/2022 10:56:32 Uterine size for dates discrepancy 555169658 O26.843 Z3A.28 [id number] Barry Malave MD [place] [address],[place] [address] 04/04/2022 10:19:05 04/04/2022 12:16:12 Routine care 889961164 Z34.02 [id number] [facility] [address],[place] [address] 04/22/2022 11:49:45 04/22/2022 12:33:13 Routine care 203892277 Z34.93 [id number] Barry Malave MD [place] [address],[place] [address] 05/06/2022 14:04:05 05/06/2022 14:43:38 Routine care 621843585 Z34.02 Obesity 971713398 E66.9 [id number] Haydee Hope [place] [address],[place] [address] 05/16/2022 15:32:53 05/16/2022 16:10:10 Reduced movement 986418298 O36.8199 [id number] Pau Hawley [place] [address],[place] [address] 05/23/2022 11:18:03 05/23/2022 12:13:41 Routine care 971740960 Z34.93 [id number] Lena Sun [place] [address],[place] [address] 05/31/2022 14:44:04 05/31/2022 15:27:00 Complete breech presentation 32568262 O32.1XX0 Z3A.36 [id number] Bell Godoy MD [place] [address],[place] [address] 05/31/2022 14:44:49 05/31/2022 15:52:42 Routine care 944618873 Z34.03 [id number] Barry Malave MD [place] [address],[place] [address] 06/08/2022 15:22:01 06/08/2022 17:10:44 Routine care 362175127 Z34.02 [id number] Barry Malave MD [place] [address],[place] [address] 06/17/2022 10:56:54 06/17/2022 12:05:25 Routine care 211656953 Z34.02 [id number] Barry Malave MD [place] [address],[place] [address] 06/23/2022 14:05:02 06/23/2022 14:58:11 Routine care 655548804 Z34.02 [id number] Barry Malave MD [place] [address],[place] [address] 06/28/2022 12:38:37 06/29/2022 10:56:56 Routine care 785512374 Z34.02 [id number] Haydee Arnett [place] [address],[place] [address] 06/28/2022 14:25:21 06/28/2022 15:08:39 Post-term 55351923 O48.0 [id number] Barry Malave MD [place] [address],[place] [address] 08/03/2022 16:23:15 08/03/2022 20:40:10 care 971847547 Z39.2 this patient is a 22-year-ol d female who is 1 month from a vaginal . Her baby is doing well. Her mood is good. She has stopped bleeding. She is going to use condoms for contracept ion. She is breast-fee ding and she has not had sex. She will return for possible IUD insertion. She is considerin g that. Otherwise she will follow-up as needed. [id number] Pau Hawley [place] [address],[place] [address] 11/08/2022 15:42:44 11/08/2022 17:47:10 Pain in pelvis 98114165 R10.2 Will schedule ultrasound and follow up to go over results and determine plan of care. [id number] Karen Guzman [place] [address],[place] [address] 11/18/2022 16:28:14 11/18/2022 17:00:32 Pain in pelvis 63028432 R10.2 this patient is a 20-year-ol d female presents for pelvic pain. This is a follow-up visit. She had a pelvic ultrasound . She had diagnostic laparoscop y a couple of months ago. During the laparoscop y I felt endometrio sis was present. Endometrio sis was not identified on biopsy results. Her pelvic ultrasound today is normal. She continues to have pain. We discussed ways to proceed with her evaluation ,treatment and therapy. we discussed physical therapy, pelvic pain specialist , evaluation for interstiti al cystitis. We will begin with physical therapy. We will arrange a physical therapy consultati on. We spent 15 minutes face-to-fa ce. All of this was counseling . [id number] Barry Malave MD [place] [address] [address] 11/25/2022 12:26:59 11/25/2022 13:34:49 Dyspareunia 76382095 N94.10 this patient is a 22-year-ol d female with dyspareuni a. She some pelvic pain. Did do surgery. She feels the pain is better but still has intercours e. She is going to go back to pelvic floor therapy techniques . She is going to use technique she learned pelvic floor therapy. Her ultrasound was reviewed today and is normal. We spent 20 minutes face-to-fa ce. More than 50% was counseling . She will contact us if her problem persists or gets worse. [id number] ALVERTO Cuevas [place] [address] [address] 04/05/2023 09:56:01 04/05/2023 10:42:30 Vaginitis 43481398 N76.0 suspect BV/yeastva ginitis / STI panel sentvulvar care guidelines reviewedrx sent, R/B/A discussedR TC if symptoms persist past treatment Time spent in visit is a total of 20mins with at least 50% of visit consisting of counseling and review of plan of care. Venereal d isease screening 470021419 Z11.3 [id number] Karen Guzman [place] [address] [address] 12/05/2023 15:52:50 12/05/2023 16:30:47 Threatened miscarriage 80944976 O20.0 Z3A.01 [id number] Judi Uriarte [place] [address],[place] [address] 12/13/2023 11:58:46 12/13/2023 12:29:18 Missed miscarriage 38138205 O02.1 Z3A.01 [id number] SILVINO HANNAH MD [place] [address],[place] [address] 12/13/2023 11:59:31 12/18/2023 04:38:28 Blighted ovum 77373261 O02.0 - confirmed on US today- patient denies bleedign or cramping- discussed r/b of expectant vs medical vs surgical management ; patient desires surgical management with suction D&C- will schedule with Dr. Malave [id number] Barry Malave MD [place] [address],[place] [address] 12/25/2023 10:15:47 12/25/2023 11:47:54 Missed miscarriage 06791964 O02.1 Z3A.01 this patient presents for postop follow-up. She is 1 week postop from a suction D&C. She is recovering normally. Her bleeding is minimal. She has no foul-smell ing vaginal discharge. She denies any nausea, vomiting, fever, chills. We discussed contracept ion. We discussed future . She will follow up for a repeat test. [id number] [facility] [address],[place] [address] 12/28/2023 14:59:20 12/28/2023 15:29:18 Gynecologic examination 50913315 Z01.419 Take Calcium with Vitamin D 1200mg daily if not receiving in daily diet. It is strongly advised to have an annual flu shot and up can obtain at most pharmacies . If you have not had a TDap shot in the last 10 years you should obtain one as well. Discussed with patient & provided with informatio n regarding Gardisil vaccine to prevent the 4 strains for HPV that cause cervical cancer if under age 26. Encourage safe sexual practices, to use condoms and limit partners if not already in a monogamous relationsh ip. Do monthly self breast exams. Have mammogram yearly or every other year depending on family history. BRCA testing is now available for patients with strong genetic history of female cancer. If interested contact the office. Engage in daily exercise of low impact aerobic exercise 45-60 minutes 4-5 times weekly. Avoid tobacco and illicit drugs as well as using moderation with alcohol intake less than 1-2 8 oz beverages daily. This lifestyle behavior pattern will lead to less health conditions and longer life span. If BMI greater than 25 weight watchers or dietary consult advised. Patient received above instructio ns, and questions have been answered. If you have any questions please call or respond to this email. Patient was made aware of the patient portal and may obtain a paper copy of today's plan if desired. Pap due 2024 STD Screen declined Genetic Screen discussed Colon Screen na Dexa Screen na Routine Labs UTD [id number] SILVINO HANNAH MD [place] [address],[place] [address] 02/07/2024 17:15:41 02/08/2024 09:15:58 Pelvic congestion syndrome 01506307 N94.89 - diagnosed on MRI per patient; records not available to review at time of visit however requested- patient reports aching pelvic pain and pressure since menarche; has tried OCPs and pelvic floor PT with improvemen t to menses however pain is still present- discussed management options including expectant, pelvic floor PT, progestero ne therapy or vascular coiling with IR vs vascularit y- patient considerin g options and when call when she has decide [id number] [facility] [address],[place] [address] 07/23/2024 13:46:59 07/23/2024 14:51:58 Threatened miscarriage 02895788 O20.0 Z3A.01 [id number] [facility] [address],[place] [address] 09/19/2024 13:53:06 09/19/2024 14:32:45 screening 179766734 Z36.87 Z3A.01 [id number] Judi Uriarte [place] [address],[place] [address] 09/30/2024 15:33:56 09/30/2024 16:33:10 [id number] Barry Malave MD [place] [address],[place] [address] 09/30/2024 15:34:19 09/30/2024 17:24:27 Amenorrhea 31853135 N91.2 this patient is a 24-year-ol d female who presents for amenorrhea . She is a positive test. Ultrasound revealed a 1st trimester gestation. Patient has no complaints . We talked about early care. Talked about genetic screening. We talked about her ultrasound results. We talked about the 12 week ultrasound that has genetic screening components . She was given recommenda tions on exercise, diet, over-the-c ounter medication s. We reviewed her obstetric history. We reviewed her medical history. We reviewed her social history. She will begin routine care at her next visit. [id number] Judi [facility] [address],[place] [address] 10/29/2024 11:49:26 10/29/2024 12:47:12 screening 259170718 Z36.82 Z3A.11 [id number] SILVINO HANNAH MD [place] [address],[place] [address] 10/29/2024 11:50:08 10/29/2024 13:25:10 Gestation period, 12 weeks 03449264 Z3A.12 Routine an tenatal care 005943610 Z34.81 [id number] Maryuri Goodwin CNM [place] [address],[place] [address] 11/26/2024 10:25:27 11/26/2024 11:15:39 Gestation period, 16 weeks 12387653 Z3A.16 Health Concerns Section Related Observation LastModified by Organization Detai ls LastModified Time None Recorded Concern Status LastModified by Organization Details LastModified Time None Recorded Advance Directives Directive N: Payers Encounter Date Sequence Insurance Name Policy Number Policy Nolasco Covered Member ID Nolasco Member ID Guarantor Name 09/30/2024 1 [facility] [id number] Jessica Clemons [id number] Jessica Clemons 09/30/2024 1 [employer] [id number] Jessica Clemons [id number] Jessica Clemons 10/29/2024 1 [employer] [id number] Jessica Clemons [id number] Jessica Clemons 10/29/2024 1 [employer] [id number] Jessica Clemons [id number] Jessica Clemons 11/26/2024 1 [employer] [id number] Jessica Clemons [id number] Jessica Clemons Notes Date Note Type Note Provider Name and Address Organization Details Recorded Time 09/30/2024 text/html this patient is a 24-year-old female who presents for amenorrhea. She is a positive test. Ultrasound revealed a 1st trimester gestation. Patient has no complaints. We talked about early care. Talked about genetic screening. We talked about her ultrasound results. We talked about the 12 week ultrasound that has genetic screening components. She was given recommendations on exercise, diet, hkqd-weu-aovdmyt medications. We reviewed her obstetric history. We reviewed her medical history. We reviewed her social history. She will begin routine care at her next visit. Barry Malave MD [address], [place], [address], [facility] 09/30/2024 17:18:17 OBGyn Episode Ob Episode Information Episode Created Date Number of Fetuses Patient Bloodtype Patient rh Status Prepregnancy Weight lbs Domestic Partner Domestic Partner Phone Father Name Executive Officer [employer] Status 12/28/19 22 1 O Positive Jose Clemons CLOSED Fetus Data First Name Last Name Admitted to NICU Weight (g) Sex Living Outcome Pediatric Complications Fetus ID Race Codes Race Delivery Type Lynn 3401.94 F true Full Term term meconium [id number] Vaginal Delivery Problems Problem Notes PNL WNL/ NIPT NL XX/UDS neg Problem Name Start Date End Date Resolution Snomed Code Not e Tachycardia [id number] RPT THYR OID PANEL @ 20WK!! 24 hr holter abnormal - cardio Dr. Vizcaino - pt has echo in February and follow up in Apr, states nothing until PP.Much improved at 33 weeks Fibromyalgia 383585857 History of endometriosis [id number] Gregorio Calculation Initial Gregorio Date Initial Exam Date Initial Exam Provider Initial Ultrasound Date Last Menstrual Period Date Ultra Sound Weeks Gestation 06/25/2022 12/27/2021 12/03/2021 09/18/2021 10 Eighteen To Twenty Week Gregorio Update Ultra Sound Date Fundal Height At Umbil Quickening Date Ultra Sound Latest Weeks Gestation Final Gregorio Confirmed By Final Gregorio Confirmed Date Final Gregorio Date Ultra Sound Latest Days Gestation 0 [email or web address] 12/27/2021 06/25/20 22 0 Pre-belinda Flowsheet Flowsheet Date 12/27/2021 De La Paz Score Blood Edema Fundus Height Fundus Units Glucose Ketones Leukocytes Nitrite Labor Signs Protein Cervic Dilation Cervic Effacement Cervic Station 14 none neg Type Weight in lbs Pre/Post Dialysis Refused Weight 194.195073143464 BP Diastolic BP Location Tested BP Systolic BP Type 82 L arm 128 sitting Fetus Heart Rate Present A 154 Fetus Movement A No Comments this patient is a 22-year-ol d female 1 at 14 weeks gestation who presents for initial care. She has very good dating. She has a certain LMP that matches A 10 week ultrasound to the date. She is on vaccinated. She is given vaccine recommendations. She has no worrisome medical, surgical, obstetric history. We talked about care in great detail. She will begin routine care. Flowsheet Date 12/27/2021 De La Paz Score Blood Edema Fundus Height Fundus Units Glucose Ketones Leukocytes Nitrite Labor Signs Protein Cervic Dilation Cervic Effacement Cervic Station Type Weight in lbs Pre/Post Dialysis Refused BP Diastolic BP Location Tested BP Systolic BP Type Fetus Heart Rate Present Fetus Movement Comments Flowsheet Date 01/26/2022 De La Paz Score Blood Edema Fundus Height Fundus Units Glucose Ketones Leukocytes Nitrite Labor Signs Protein Cervic Dilation Cervic Effacement Cervic Station Type Weight in lbs Pre/Post Dialysis Refused BP Diastolic BP Location Tested BP Systolic BP Type Fetus Heart Rate Present Fetus Movement Comments Flowsheet Date 01/26/2022 De La Paz Score Blood Edema Fundus Height Fundus Units Glucose Ketones Leukocytes Nitrite Labor Signs Protein Cervic Dilation Cervic Effacement Cervic Station Type Weight in lbs Pre/Post Dialysis Refused BP Diastolic BP Location Tested BP Systolic BP Type Fetus Heart Rate Present Fetus Movement Comments Flowsheet Date 02/24/2022 De La Paz Score Blood Edema Fundus Height Fundus Units Glucose Ketones Leukocytes Nitrite Labor Signs Protein Cervic Dilation Cervic Effacement Cervic Station Type Weight in lbs Pre/Post Dialysis Refused BP Diastolic BP Location Tested BP Systolic BP Type Fetus Heart Rate Present Fetus Movement Comments Flowsheet Date 02/24/2022 De La Paz Score Blood Edema Fundus Height Fundus Units Glucose Ketones Leukocytes Nitrite Labor Signs Protein Cervic Dilation Cervic Effacement Cervic Station neg none 23 none trace Type Weight in lbs Pre/Post Dialysis Refused Weight 209.220537701440 BP Diastolic BP Location Tested BP Systolic BP Type 78 120 Fetus Heart Rate Present A 145 Fetus Movement A Yes Comments no complaints, anatomy compl eted today, has cardiology follow-up. Flowsheet Date 03/18/2022 De La Paz Score Blood Edema Fundus Height Fundus Units Glucose Ketones Leukocytes Nitrite Labor Signs Protein Cervic Dilation Cervic Effacement Cervic Station 26 Type Weight in lbs Pre/Post Dialysis Refused Weight 217.711099227485 BP Diastolic BP Location Tested BP Systolic BP Type 82 R arm 128 sitting Fetus Heart Rate Present A 145 Fetus Movement A Yes Comments growth US and GTT in 2 weeks Flowsheet Date 04/04/2022 De La Paz Score Blood Edema Fundus Height Fundus Units Glucose Ketones Leukocytes Nitrite Labor Signs Protein Cervic Dilation Cervic Effacement Cervic Station Type Weight in lbs Pre/Post Dialysis Refused BP Diastolic BP Location Tested BP Systolic BP Type Fetus Heart Rate Present Fetus Movement Comments Flowsheet Date 04/04/2022 De La Paz Score Blood Edema Fundus Height Fundus Units Glucose Ketones Leukocytes Nitrite Labor Signs Protein Cervic Dilation Cervic Effacement Cervic Station 28 Type Weight in lbs Pre/Post Dialysis Refused Weight 215.352162605682 BP Diastolic BP Location Tested BP Systolic BP Type 83 R arm 122 sitting Fetus Heart Rate Present A 157 Fetus Movement Comments growth ultrasound today -37t h percentile, no complaints, patient's cardiac symptoms have resolved. Flowsheet Date 04/22/2022 De La Paz Score Blood Edema Fundus Height Fundus Units Glucose Ketones Leukocytes Nitrite Labor Signs Protein Cervic Dilation Cervic Effacement Cervic Station neg trace 32 none trace Type Weight in lbs Pre/Post Dialysis Refused Weight 221.267220909071 BP Diastolic BP Location Tested BP Systolic BP Type 80 120 Fetus Heart Rate Present A 151 Fetus Movement A Yes Comments patient is having some swell ing and back pain. wearing compression stockings at clinicals reviewed precautions f/u 2 weeks tdap was in december Flowsheet Date 05/06/2022 De La Paz Score Blood Edema Fundus Height Fundus Units Glucose Ketones Leukocytes Nitrite Labor Signs Protein Cervic Dilation Cervic Effacement Cervic Station 32 Type Weight in lbs Pre/Post Dialysis Refused Weight 225.241644120992 BP Diastolic BP Location Tested BP Systolic BP Type 76 R arm 128 sitting Fetus Heart Rate Present A 145 Fetus Movement Comments no complaints, likely vertex , growth ultrasound next week Flowsheet Date 05/16/2022 De La Paz Score Blood Edema Fundus Height Fundus Units Glucose Ketones Leukocytes Nitrite Labor Signs Protein Cervic Dilation Cervic Effacement Cervic Station Type Weight in lbs Pre/Post Dialysis Refused BP Diastolic BP Location Tested BP Systolic BP Type Fetus Heart Rate Present Fetus Movement Comments Flowsheet Date 05/23/2022 De La Paz Score Blood Edema Fundus Height Fundus Units Glucose Ketones Leukocytes Nitrite Labor Signs Protein Cervic Dilation Cervic Effacement Cervic Station neg none 36 none trace Type Weight in lbs Pre/Post Dialysis Refused Weight 225.988031593811 BP Diastolic BP Location Tested BP Systolic BP Type 80 114 Fetus Heart Rate Present A 151 Fetus Movement A Yes Comments Doing well. Occasional contr actions. Labor precautions discussed. Having a girl Lynn Rukhsana . Will schedule presentation ultrasound with visit next week. Encouraged flu shot. Flowsheet Date 05/31/2022 De La Paz Score Blood Edema Fundus Height Fundus Units Glucose Ketones Leukocytes Nitrite Labor Signs Protein Cervic Dilation Cervic Effacement Cervic Station Type Weight in lbs Pre/Post Dialysis Refused BP Diastolic BP Location Tested BP Systolic BP Type Fetus Heart Rate Present Fetus Movement Comments Flowsheet Date 05/31/2022 De La Paz Score Blood Edema Fundus Height Fundus Units Glucose Ketones Leukocytes Nitrite Labor Signs Protein Cervic Dilation Cervic Effacement Cervic Station neg trace none trace 0cm 30% Type Weight in lbs Pre/Post Dialysis Refused Weight 227.183633482879 BP Diastolic BP Location Tested BP Systolic BP Type 77 125 Fetus Heart Rate Present A 130 Fetus Movement A Yes Comments Doing well. No contractions. Vertex on US, 36%. GBS done and discussed. Precautions. FU weekly. Flowsheet Date 06/08/2022 De La Paz Score Blood Edema Fundus Height Fundus Units Glucose Ketones Leukocytes Nitrite Labor Signs Protein Cervic Dilation Cervic Effacement Cervic Station 37 trace Type Weight in lbs Pre/Post Dialysis Refused Weight 233.243091952020 BP Diastolic BP Location Tested BP Systolic BP Type 75 R arm 124 sitting Fetus Heart Rate Present A 136 Fetus Movement A Yes Comments no complaints, no problems, discussed delivery Flowsheet Date 06/17/2022 De La Paz Score Blood Edema Fundus Height Fundus Units Glucose Ketones Leukocytes Nitrite Labor Signs Protein Cervic Dilation Cervic Effacement Cervic Station 38 2cm 40% -3 Type Weight in lbs Pre/Post Dialysis Refused Weight 233.642345695702 BP Diastolic BP Location Tested BP Systolic BP Type 66 R arm 121 sitting Fetus Heart Rate Present A 145 Fetus Movement Comments to observe patient for labor , will consider induction next week Flowsheet Date 06/23/2022 De La Paz Score Blood Edema Fundus Height Fundus Units Glucose Ketones Leukocytes Nitrite Labor Signs Protein Cervic Dilation Cervic Effacement Cervic Station 39 Type Weight in lbs Pre/Post Dialysis Refused Weight 236.421537048828 BP Diastolic BP Location Tested BP Systolic BP Type 86 R arm 134 sitting Fetus Heart Rate Present A 141 Fetus Movement A Yes Comments no contractions, baby is hig h, no cervical change, 2 cm but very high. Wants to be induced before 41 weeks. Flowsheet Date 06/28/2022 De La Paz Score Blood Edema Fundus Height Fundus Units Glucose Ketones Leukocytes Nitrite Labor Signs Protein Cervic Dilation Cervic Effacement Cervic Station 39 Type Weight in lbs Pre/Post Dialysis Refused Weight 239.530984438399 BP Diastolic BP Location Tested BP Systolic BP Type 87 L arm 146 sitting Fetus Heart Rate Present A 142 Fetus Movement Comments to start NSTs today. Will be induced before 41 weeks. Favorable cervix, more pressure, maybe some bloody show. Flowsheet Date 06/28/2022 De La Paz Score Blood Edema Fundus Height Fundus Units Glucose Ketones Leukocytes Nitrite Labor Signs Protein Cervic Dilation Cervic Effacement Cervic Station Type Weight in lbs Pre/Post Dialysis Refused BP Diastolic BP Location Tested BP Systolic BP Type Fetus Heart Rate Present Fetus Movement Comments Flowsheet Date 08/03/2022 De La Paz Score Blood Edema Fundus Height Fundus Units Glucose Ketones Leukocytes Nitrite Labor Signs Protein Cervic Dilation Cervic Effacement Cervic Station Type Weight in lbs Pre/Post Dialysis Refused Weight 213.559390891975 BP Diastolic BP Location Tested BP Systolic BP Type 78 R arm 129 sitting Fetus Heart Rate Present Fetus Movement Comments Menstrual History Last Menstrual Date Menses Monthly On Bcp Conception Prior Menses Frequency Hcg Plus Date Menarche Onset Age 0109/18/2021 Genetic Screening And Infection History Question Response Note Mental Retardation/Autism false Patient's Age Will Be 35 Years Or Older At Estim ated Date of Delivery false Thalassemia (Qatari, English, Mediterranean, Or Background): MCV < 80 false Neural Tube Defect (Meningomyelocele, Spina Bifi da, Or Anencephaly) false Congenital Heart Defect false Down Syndrome false William-Sachs (eg, Anabaptist, Cajun, [place]ican-Viola) f alse Tamar Disease false Sickle Cell Disease Or Trait () false Hemophilia Or Other Blood Disorders false Muscular Dystrophy false Cystic Fibrosis false [place]'s Chorea false Intellectual Disability/Autism false If Yes, Was Person Tested For Fragile X? false Other Inherited Genetic Or Chromosomal Disorder false Maternal Metabolic Disorder (eg, Type 1 Diabetes , PKU) false Patient Or Baby's Father Had A Child With Defects Not Listed Above false Recurrent Loss, Or A Stillbirth false Medications (including Suppl ements, Vitamins, Herbs, OTC Drugs), Illicit/Recreational Drugs, Alcohol false If Yes, Agent(s) And Strength/Dosage false Any Other Genetic History false Live With Someone With TB Or Exposed To TB false Patient Or Partner Has History Of Genital Herpes false Rash Or Viral Illness Since Last Menstrual Perio d false History Of STD, Gonorrhea, Chlamydia, HPV, Syphi lis false Other Infection History false History of HIV false History of Hepatitis false Prior GBS-infected child false Hemoglobinopathy Or Carrier false Other Structural Defect false Recent Travel History Outside of Country false Delivery Information Delivery Date Delivery Type Labor Anesthesia Weeks Gestation Incision Type Labor Labor Length Hrs Delivered By Post Complications Tubal Sterilization Discharge Date Comments 2 Adolfo evans [facility] idural 40.6 Barry Mohan MD Discharge Information Feeding Method Contraceptive Method Maternal HG B and HCT Levels Breast Ob Episode Information Episode Created Date Number of Fetuses Patient Bloodtype Patient rh Status Prepregnancy Weight lbs Domestic Partner Domestic Partner Phone Father Name Executive Officer [employer] Status 10/29/19 25 1 O Positive 216 OPEN Fetus Data First Name Last Name Admitted to NICU Weight (g) Sex Living Outcome Pediatric Complications Fetus ID Race Codes Race Delivery Type [id number] Gregorio Calculation Initial Gregorio Date Initial Exam Date Initial Exam Provider Initial Ultrasound Date Last Menstrual Period Date Ultra Sound Weeks Gestation 05/08/2025 10/29/2024 09/30/2024 8 Eighteen To Twenty Week Gregorio Update Ultra Sound Date Fundal Height At Umbil Quickening Date Ultra Sound Latest Weeks Gestation Final Gregorio Confirmed By Final Gregorio Confirmed Date Final Gregorio Date Ultra Sound Latest Days Gestation 0 [email or web address] 10/29/2024 05/08/20 25 0 Pre- Flowsheet Flowsheet Date 10/29/2024 De La Paz Score Blood Edema Fundus Height Fundus Units Glucose Ketones Leukocytes Nitrite Labor Signs Protein Cervic Dilation Cervic Effacement Cervic Station Type Weight in lbs Pre/Post Dialysis Refused Weight 216.878943652561 BP Diastolic BP Location Tested BP Systolic BP Type 82 L arm 124 sitting Fetus Heart Rate Present A 164 Fetus Movement Comments Patient presents to [facility] care. Hx of full term in 2021, uncomplicated. Hx of 2 miscarriages. otherwise uncomplicated. No nausea or cramping. NT/NB wnl today, desires NIPT. Will draw today with new OB labs. RTC 4 weeks for routine care. Flowsheet Date 11/26/2024 De La Paz Score Blood Edema Fundus Height Fundus Units Glucose Ketones Leukocytes Nitrite Labor Signs Protein Cervic Dilation Cervic Effacement Cervic Station neg none Type Weight in lbs Pre/Post Dialysis Refused Weight 222.6875824873 BP Diastolic BP Location Tested BP Systolic BP Type 83 127 Fetus Heart Rate Present Fetus Movement A Yes Comments Patient is having cramping a nd discharge and nausea. reviewed precautions and education, not feeling movement yet, plan anatomy scan in 4 weeks Menstrual History Last Menstrual Date Menses Monthly On Bcp Conception Prior Menses Frequency Hcg Plus Date Menarche Onset Age Delivery Information Delivery Date Delivery Type Labor Anesthesia Weeks Gestation Incision Type Labor Labor Length Hrs Delivered By Post Complications Tubal Sterilization Discharge Date Comments Discharge Information Feeding Method Contraceptive Method Maternal HG B and HCT Levels Ob Episode Information Episode Created Date Number of Fetuses Patient Bloodtype Patient rh Status Prepregnancy Weight lbs Domestic Partner Domestic Partner Phone Father Name Executive Officer [employer] Team Status 12/25/19 24 1 CLOSED Fetus Data First Name Last Name Admitted to NICU Weight (g) Sex Living Outcome Pediatric Complications Fetus ID Race Codes Race Delivery Type , [place] [id number] Gregorio Calculation Initial Gregorio Date Initial Exam Date Initial Exam Provider Initial Ultrasound Date Last Menstrual Period Date Ultra Sound Weeks Gestation 0 Eighteen To Twenty Week Gregorio Update Ultra Sound Date Fundal Height At Umbil Quickening Date Ultra Sound Latest Weeks Gestation Final Gregorio Confirmed By Final Gregorio Confirmed Date Final Gregorio Date Ultra Sound Latest Days Gestation 0 0 Menstrual History Last Menstrual Date Menses Monthly On Bcp Conception Prior Menses Frequency Hcg Plus Date Menarche Onset Age Delivery Information Delivery Date Delivery Type Labor Anesthesia Weeks Gestation Incision Type Labor Labor Length Hrs Delivered By Post Complications Tubal Sterilization Discharge Date Comments 4 Discharge Information Feeding Method Contraceptive Method Maternal HG B and HCT Levels Ob Episode Information Episode Created Date Number of Fetuses Patient Bloodtype Patient rh Status Prepregnancy Weight lbs Domestic Partner Domestic Partner Phone Father Name Executive Officer [employer] Team Status 07/29/20 24 1 CLOSED Fetus Data First Name Last Name Admitted to NICU Weight (g) Sex Living Outcome Pediatric Complications Fetus ID Race Codes Race Delivery Type , [place] [id number] Gregorio Calculation Initial Gregorio Date Initial Exam Date Initial Exam Provider Initial Ultrasound Date Last Menstrual Period Date Ultra Sound Weeks Gestation 0 Eighteen To Twenty Week Gregorio Update Ultra Sound Date Fundal Height At Umbil Quickening Date Ultra Sound Latest Weeks Gestation Final Gregorio Confirmed By Final Gregorio Confirmed Date Final Gregorio Date Ultra Sound Latest Days Gestation 0 0 Menstrual History Last Menstrual Date Menses Monthly On Bcp Conception Prior Menses Frequency Hcg Plus Date Menarche Onset Age Delivery Information Delivery Date Delivery Type Labor Anesthesia Weeks Gestation Incision Type Labor Labor Length Hrs Delivered By Post Complications Tubal Sterilization Discharge Date Comments 4 Discharge Information Feeding Method Contraceptive Method Maternal HG B and HCT Levels
--- OUTSIDE RECORDS SUMMARY | 2024-11-29 11:29 | XMS_ITS | Clinical Summary ---
Author Organization [facility] Address [address] [place] [address] Care Team Providers Care Embryology Teacher Name Role Phone Sawyer Augustin JOSE Primary Care Provi mohan Allergies No known active allergies Medications DULoxetine HCl 40 MG CAPSULE ENTERIC COATED PARTICLES Take by mouth daily. Active Magnesium Oxide -Mg Supplement 500 MG Tab Take by mouth daily. Active MV-Min-Fe Fum-FA-DHA ( MULTI +DHA) 27-0.8-250 MG Cap Take by mouth Active Family History Medical History Relation Comments Anxiety Brother Adjustment Disorder with Mixed Anxiety and Depre ssed Mood Father Alcohol Abuse Father Atherosclerosis Father Anxiety Mother Depression Mother Fibromyalgia Mother Hypertension Mother Anxiety Sister Relation Status Comments Brother Father Mother Sister Social History Tobacco Use Types Packs/Day Years Used Date Smoking Tobacco: Never Smokeless Tobacco: Never Tobacco Cessation:Counseling Given: Not Answered Alcohol Use Standard Drinks/Week Comments Never 0 (1 standard drink = 0.6 oz pur e alcohol) Comments Unknown Sex and Gender Information Value Date Recorded Sex Assigned at Not on file Legal 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 Gender Identity Not on file Sexual Orientation Not on file Last Filed Vital Signs Vital Sign Reading Time Taken Comments Blood Pressure 137/93 01/17/2024 12:24 PM CDT Pulse 86 01/17/2024 12:24 PM CDT Temperature 36.4 C (97.6 F) 01/17/2024 11:59 AM CDT Respiratory Rate 18 01/17/2024 12:24 PM CDT Oxygen Saturation 99% 01/17/2024 12:24 PM CDT Inhaled Oxygen Concentration - - Weight 97.1 kg (214 lb) 01/17/2024 11:59 AM CDT Height 162.6 cm (5' 4 ) 01/17/2024 11:59 AM CDT Body Mass Index 36.73 01/17/2024 11:59 AM CDT Plan of Treatment Health Maintenance Due Date Last Done Comments Annual Physical 02/26/2003 PHQ-2 (Physician [place]) 2012 HPV Vaccines (1 - 3-dose series) 02/26/2015 Hepatitis C 02/26/2018 COVID-19 Vaccine ( season) 2024 Influenza Adult (#1) 2024 07/06/2023, 06/07/2022, 06/04/2022, Additional history exists PHQ-2 (Physician [place]) 09/04/2024 Cervical Cancer Screening Pap Smear (Age 21 to 29) Every 3 Years 11/08/2025 11/08/2022 Cervical Cancer Screening 11/08/2025 DTaP, Tdap and Td Vaccines (8 - Td or Tdap) 01/19/2032 01/18/2022, 02/28/2011, 12/16/2004, Additional history exists Hepatitis B Vaccines Completed 02/28/2001, 02/28/2001, 2000, Additional history exists Pneumococcal Vaccine: Pediatrics (0 to 5 Years) and At-Risk Patients (6 to 64 Years) Aged Out 02/28/2001, 2000, 2000, Additional history exists No longer eligible based on patient's age to complete this topic Meningococcal Vaccine Completed 07/18/2016, 011 Meningococcal B Vaccine Aged Out No l onger eligible based on patient's age to complete this topic RSV Immunizations Under 20 Months Aged Out No longer eligible based on patient's age to complete this topic Insurance [facility] Care Teams Embryology Teacher Relationship Specialty Start Date End Date Sawyer Augustin NP [address] [place] [phone] PCP - General Nurse Practitioner Family 10/10/23
--- NOTE | 2024-11-29 13:29 | ED.PREGNANCY ---
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 She is approximately 17 weeks by last ultrasound and sees Dr. Mims from OBGYN. She called Dr. Mims's office and was referred to the ED as they did not have any appointments for her today. She is telling me that she had 1 episode of spotting at home without any persistent bleeding. Was otherwise not in any distress and had no abdominal pain. Has had 2 small subchorionic hemorrhages during this but no other complications. Two previous miscarriages, 1 successful previously. Denies any other symptoms such as nausea, vomiting, abdominal pain or back pain. No fever chills. Was otherwise in her normal state of health. Denies any trauma or injury. No urinary complaints. Related Data Home Medications ?Medication ?Instructions ?Recorded ?Confirmed ?Last Taken ?Type magnesium oxide 400 mg PO DAILY 12/15/23 12/19/23 Unknown History vitamins no.159-iron 1 tablet PO DAILY 12/15/23 12/19/23 Unknown History fumarate 28 mg-folic acid 800 mcg tablet ( Vitamin) Allergies Allergy/AdvReac Type Severity Reaction Status Date / Time No Known Allergies Allergy Verified 12/19/23 10:11 Review of Systems Review of Systems: As reviewed above in [facility]PI [facility] Past Medical History Medical History Fibromyalgia Overweight (BMI 25.0-29.9) Social History Social History Smoking status: Never smoker Second hand tobacco smoke exposure: No Alcohol intake: never Substance use: never Substance use type: does not use Living arrangements: with family Gender identity (if verbalized by the patient): Female Sexual Orientation (if Verbalized by the Patient): Straight or Heterosexual Spiritual care concerns: No Exam Narrative: GENERAL: [Well-appearing, well-nourished, and in no acute distress.] HEAD: [Normocephalic, atraumatic.] EYES: [PERRLA and EOMI.] ENT: Nares clear, no rhinorrhea or epistaxis. Mucous membranes moist. NECK: Supple. CHEST: [Clear to auscultation. No respiratory distress.] HEART: [Regular rate and rhythm]. No murmur heard. [Normal peripheral pulses.] ABDOMEN: [Soft, nondistended], [nontender], [No rigidity or guarding] EXTREMITIES: Normal range of motion. [No edema.] SKIN: Warm, dry, no rash. NEURO: [No focal deficits]. Alert and oriented [x3.] PSYCH: [Normal mood and affect.] Course Vital Signs Vital signs: Vital Signs Temperature 36.4 C 11/29/24 10:53 Pulse Rate 99 11/29/24 10:53 Respiratory Rate 18 11/29/24 10:53 Blood Pressure 119/71 11/29/24 10:53 Pulse Oximetry 100 11/29/24 10:53 Temperature 36.4 C 11/29/24 10:53 Pulse Rate 99 11/29/24 10:53 Respiratory Rate 18 11/29/24 10:53 Blood Pressure 119/71 11/29/24 10:53 Pulse Oximetry 100 11/29/24 10:53 MDM - OB/Uterine Contractions MDM Narrative Medical decision making narrative: 24-year-old female approximately 17 weeks by last ultrasonography, sees Dr. Mims outpatient. Presents with 1 episode of vaginal spotting without clot passage or any tissue passage. Had an episode of vaginal spotting early in this with findings of small subchorionic hemorrhages that seem to have resolved on repeat ultrasound. Patient denies any abdominal pain abdominal cramping, leakage of fluids, UTI symptoms, fever, chills, back pain. She is otherwise very well-appearing and in good spirits. Normal vital signs. Suspicion presently for potential vaginal bleeding in , subchorionic hemorrhage, threatened miscarriage, missed miscarriage, low suspicion trauma. Basic laboratory studies including CBC, CMP, type and screen, RhoGAM evaluation, and an ultrasound of the fetus was ordered. Workup shows no leukocytosis or anemia. Normal platelet count. Coagulation panel normal. Electrolytes unremarkable. Normal renal function, normal glucose, normal hepatic function. Urinalysis without any signs of infection. Obstetric ultrasound shows single live IUP in breech position, no acute concerning findings. heart rate 148. Patient is hemodynamically stable, safe for discharge home with OBGYN follow-up with Dr. Mims. Medical Records Attestation: I reviewed the patient's medical records. Lab Data Attestation: I reviewed the patient's lab results. 11/29/24 13:37 11/29/24 13:37 Labs: Lab Results 11/29/24 11/29/24 11/29/24 Range/Units 13:21 13:28 13:37 WBC 9.8 (4.5-10.0) K/mm3 RBC 4.04 L (4.2-5.4) M/mm3 Hgb 12.8 D (12.0-15.0) g/dL Hct 38.3 (37.0-47.0) % MCV 94.8 (80-100) fl MCH 31.7 (26-34) pg MCHC 33.4 (32-36) g/dl RDW 13.7 (11.5-14.5) % Plt Count 173 (150-375) k/mm3 MPV 10.6 H (7.4-10.4) fl Immature Gran % (Auto) 0.4 (0-0.5) % Neut % (Auto) 69.8 (45.5-73.1) % Lymph % (Auto) 23.0 (18.3-44.2) % Centre % (Auto) 5.3 (2.6-8.5) % Eos % (Auto) 1.3 (0-4.4) % Baso % (Auto) 0.2 (0.2-1.2) % Lymph # (Auto) 2.24 (0.9-3.2) K/mm3 Centre # (Auto) 0.5 (0.1-0.6) K/mm3 Eos # (Auto) 0.1 (0-0.3) K/mm3 Baso # (Auto) 0.0 (0.0-0.1) K/mm3 Abs Immat Gran (auto) 0.04 H (0.00-0.031) K/mm3 Absolute Neuts (auto) 6.8 H (1.3-6.7) K/mm3 Absolute Nucleated RBC 0.000 (0.0-0.012) K/mm3 Nucleated RBC % 0.0 (0.0-0.2) % PT 12.4 (11.1-14.7) Seconds INR 0.9 APTT 26.8 (22.3-36.8) Seconds Sodium 137 (137-145) mmol/L Potassium 3.3 L (3.4-5.0) mmol/L Chloride 108 H (98-107) mmol/L Carbon Dioxide 19 L (22-30) mmol/L Anion Gap 10 (4-12) mmol/L BUN 9 (7-17) mg/dL Creatinine 0.47 L (0.7-1.0) mg/dL Estim Creat Clear Calc 176 ml/min Estimated GFR > 60 (59 - ) Glucose 85 (65-110) mg/dL Calcium 8.7 (8.4-10.2) mg/dL Total Bilirubin 0.2 (0.2-1.3) mg/dL AST 21 (14-36) U/L ALT 16 (6-35) U/L Alkaline Phosphatase 53 (38-126) U/L Total Protein 6.0 L (6.3-8.2) g/dL Albumin 3.6 (3.5-5.1) g/dL Beta HCG, Quant 98086.00 mIU/ML Urine Color Dark yellow (Yellow) Urine Appearance Clear (Clear) Urine pH 6.5 (5.0-9.0) Ur Specific [place] 1.024 (1.001-1.035) Urine Protein Negative (Negative) mg/dL Urine Glucose (UA) Negative (Negative) mg/dL Urine Ketones 1+ H (Negative) mg/dL Ur Blood (Man) Negative (Negative) Urine Nitrate Negative (Negative) Urine Bilirubin Negative (Negative) Urine Urobilinogen 0.2 (<2.0) mg/dL Leukocyte Esterase Rfl Negative (Negative) TONIA/UL POC Urine HCG, Qual Positive (Negative) Blood Type O Positive Antibody Screen Negative Screen Not Reportable Baby's Blood Type Not Reportable Baby's KIERSTEN Not Reportable Doses of RhIg Required 0 Imaging Data Attestation: I personally reviewed and interpreted this imaging study as follows: My impression: Impressions Obstetrics Ultrasound 11/29/24 13:19 IMPRESSION: 1. Single living fetus in breech presentation. Discharge Plan Discharge Clinical Impression: Vaginal bleeding during Patient Disposition: Home, Self-Care Condition: Stable Instructions: Antibiotic Form, Non-Threatening First Trimester Vaginal Bleed (ED) Additional Instructions: Your laboratory studies are reassuring, your ultrasound shows a single live in the breech position but this is not significant for this stage of . No subchorionic hemorrhages, no bleeding, heart rate 148. If you have any persistent or new bleeding or any other concerns follow-up with your OBGYN Dr. Mims otherwise return to the ER with any concerns. Patient Language: Greek Prescriptions: No Action magnesium oxide 400 mg magnesium Tablet 400 mg PO DAILY Vitamin 28 mg iron- 800 mcg Tablet 1 tablet PO DAILY Follow-up/Referrals: Sawyer Mims MD [Physician] - 1 Week (Vaginal bleeding in ) Wendi,MD Jese [Primary Care Provider] - Time of Disposition: 15:30
[2024-11-29 13:30] LABS: BEDSIDEPREGUCG Positive (Negative)
--- OUTSIDE RECORDS SUMMARY | 2024-11-29 13:31 | XMS_ITS | Clinical Summary ---
Author Organization [facility] Address [address] [facility] [place] [address] Care Team Providers Care Tube Mounter Name Role Phone Garcia Ordonez Primary Care Provider [phone] Source Comments [facility],non-owned Affiliates and Associated Physician Practices is amultiple site organization consisting of ambulatory clinics and hospital sitesin [place], [place], [place] and [place]. This disclosure is being madepursuant to the Care Everywhere program and may not contain all information available regarding this patient. Last updated 18.[facility] Allergies No known active allergies Medications Be [...] age to complete this topic Care Teams Tube Mounter Relationship Specialty Start Date End Date Garcia Ordonez PA [address] [place] [phone] PCP - General 07/18/22
--- OUTSIDE RECORDS SUMMARY | 2024-11-29 13:31 | XMS_ITS | Clinical Summary ---
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
--- OUTSIDE RECORDS SUMMARY | 2024-11-29 13:31 | XMS_ITS | Clinical Summary ---
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 Gender Identity Not on file Sexual Orientation [...] Done Comments Annual Physical 02/26/2003 PHQ-2 (Physician Wiyot) 2012 HPV Vaccines (1 - 3-dose series) 02/26/2015 Hepatitis C 02/26/2018 COVID-19 Vaccine ( season) 2024 Influenza Adult (#1) 2024 07/06/2023, 06/07/2022, 06/04/2022, Additional history exists PHQ-2 (Physician Wiyot) 09/04/2024 Cervical Cancer Screening Pap Smear (Age [...] patient's age to complete this topic Insurance [facility] Care Teams Quarrying Manager Relationship Specialty Start Date End Date Sawyer Augustin NP [address] [place] [phone] PCP - General Nurse Practitioner Family 10/10/23
--- OUTSIDE RECORDS SUMMARY | 2024-11-29 13:31 | XMS_ITS | Referral Summary ---
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
[2024-11-29 13:48] LABS: Basophils Percent Auto 0.2 % (0.2-1.2); Eosinophils Absolute Auto 0.1 K/mm3 (0-0.3); Eosinophils Percent Auto 1.3 % (0-4.4); Hematocrit 38.3 % (37.0-47.0); Hemoglobin 12.8 g/dL (12.0-15.0); Immature Granulocyte Absolute 0.04 K/mm3 (0.00-0.031); Immature Granulocyte Percent A 0.4 % (0-0.5); Lymphocytes Absolute Auto 2.24 K/mm3 (0.9-3.2); Mean Corpuscular HGB Conc 33.4 g/dl (32-36); Mean Corpuscular Hemoglobin 31.7 pg (26-34); Mean Corpuscular Volume 94.8 fl (80-100); Mean Platelet Volume 10.6 fl (7.4-10.4); Monocytes Absolute Auto 0.5 K/mm3 (0.1-0.6); Monocytes Percent Auto 5.3 % (2.6-8.5); Neutrophils Absolute Auto 6.8 K/mm3 (1.3-6.7); Neutrophils Percent Auto 69.8 % (45.5-73.1); Platelet Count Result 173 k/mm3 (150-375); Red Blood Count 4.04 M/mm3 (4.2-5.4); Red Cell Distribution Width 13.7 % (11.5-14.5); White Blood Count 9.8 K/mm3 (4.5-10.0)
[2024-11-29 13:57] LABS: Alanine Aminotransferase 16 U/L (6-35); Albumin Level 3.6 g/dL (3.5-5.1); Alkaline Phosphatase 53 U/L (38-126); Anion Gap 10 mmol/L (4-12); Aspartate Amino Transferase 21 U/L (14-36); Bilirubin,Total 0.2 mg/dL (0.2-1.3); Blood Urea Nitrogen 9 mg/dL (7-17); Calcium 8.7 mg/dL (8.4-10.2); Carbon Dioxide 19 mmol/L (22-30); Chloride 108 mmol/L (98-107); Estimated CRCL calculation 176 ml/min; Estimated Glomerular Filt Rate > 60; Glucose 85 mg/dL (65-110); Potassium 3.3 mmol/L (3.4-5.0); Sodium 137 mmol/L (137-145)
[2024-11-29 13:59] LABS: Add Urine Microscopic? YES; Appearance Urine Clear (Clear); Bilirubin Urine Negative (Negative); Blood Urine Negative (Negative); Color Urine Dark Yellow (Yellow); Glucose Urine UA Negative (Negative); Ketones Urine 1+ mg/dL (Negative); Leukocyte Esterase Ur Negative LEU/UL (Negative); Nitrate Urine Negative (Negative); Protein Urine Negative (Negative); Specific Grav Ur 1.024 (1.001-1.035); Urobilinogen Urine 0.2 mg/dL (<2.0); pH Urine 6.5 (5.0-9.0)
[2024-11-29 13:59] LABS: INR 0.9; Prothrombin Time 12.4 Seconds (11.1-14.7)
[2024-11-29 14:00] LABS: Partial Thromboplastin Time 26.8 Seconds (22.3-36.8)
== END 2024-11-29 15:43 | disposition home or self-care (01) ==
PROVIDERS: Emergency Provider Student in an Organized Health Care Education/Training Program; PCP Family Medicine
DX: O20.9 Hemorrhage in early pregnancy, unspecified (principal); Z3A.17 17 weeks gestation of pregnancy
CPT/HCPCS: 36415; 76815; 80053; 81001; 81025; 84702; 85025; 85461; 85610; 85730; 86850; 86900; 86901; 99284

== ENCOUNTER 2025-02-21 20:02 | Outpatient (CLI) | payer OTHER, SELFPAY ==
[2025-02-21 21:21] VITALS: BP 140/69; PULSE 93
--- NOTE | 2025-02-21 21:25 | PC.NURSE ---
2030- CNM in unit. RN notified CNM of patient arrival and patient complaints. CNM reviewed FHT tracing. CNM gave d/c orders.
== END 2025-02-21 20:45 | disposition home or self-care (01) ==
LOC: ANHOBOP 20:34 → ANHLDR 20:37
PROVIDERS: PCP Family Medicine; Visit Provider Advanced Practice Midwife
DX: O36.8130 Decreased fetal movements, third trimester, not applicable or unspecified (principal); Z3A.00 Weeks of gestation of pregnancy not specified
CPT/HCPCS: 59025; 99199

== ENCOUNTER 2025-05-16 05:58 | Inpatient (IN) | payer OTHER, SELFPAY ==
[2025-05-16] VITALS (272 sets, daily range): BP systolic 85–202; BP diastolic 45–172; PULSE 25–220; TEMP 36.2–36.8; O2SAT 73–100; BMI 46.4
--- NOTE | 2025-05-16 06:13 | WPDANESEPP ---
Anes - Eval Pre Procedure Procedure: Labor epidural Date/Time: 05/16/25 06:13 Surgeon: Prasanna Preop Diagnosis: Abdominal pain with contractions Pre Op Diagnosis: IOL Patient Data Age: 25 Gender: F Height: Weight: Allergies Allergy/AdvReac Type Severity Reaction Status Date / Time No Known Allergies Allergy Verified 04/09/25 15:58 Home Medications ?Medication ?Instructions ?Recorded ?Confirmed ?Type magnesium oxide 400 mg PO DAILY 12/15/23 04/09/25 History vitamins no.159-iron 1 tablet PO DAILY 12/15/23 04/09/25 History fumarate 28 mg-folic acid 800 mcg tablet ( Vitamin) : gestational age HCG: positive Patient hx anesthesia problems: none Family hx anesthesia problems: none Results Review: All pre-operative results and documents have been reviewed as part of the pre-operative evaluation. [facility] Past Medical History Medical History (Updated 05/16/25 @ 06:16 by Winston Beasley Jr., CRNA) Back pain Palpitations Anxiety and not yet delivered Depression Obesity Fibromyalgia Overweight (BMI 25.0-29.9) Family History Family History Grandparent Diabetes mellitus Throat cancer Mother Hypertension Social History Social History Smoking status: Never smoker Second hand tobacco smoke exposure: No Alcohol intake: never Substance use: never Substance use type: does not use Living arrangements: with family Gender identity (if verbalized by the patient): Female Sexual Orientation (if Verbalized by the Patient): Straight or Heterosexual Spiritual care concerns: No Exam Day of Procedure 05/16/25 06:13 Patient weight: obese
[2025-05-16] MEDS: LACTATED RINGERS 1,000 ML 125 ML IV CONT ×4 (06:43→20:40)
[2025-05-16] MEDS: OXYTOCIN 30 UNITS/NS 500 ML 30 UNITS/500 ML BAG IV CONT (06:45)
[2025-05-16 07:05] LABS: Hematocrit 40.6 % (37.0-47.0); Hemoglobin 13.1 g/dL (12.0-15.0); Immature Granulocyte Percent A 0.8 % (0-0.5); Lymphocytes Absolute Auto 2.26 K/mm3 (0.9-3.2); Mean Corpuscular HGB Conc 32.3 g/dl (32-36); Mean Corpuscular Hemoglobin 31.5 pg (26-34); Mean Corpuscular Volume 97.6 fl (80-100); Nucleated Red Blood Cells Absolute Auto 0.000 K/mm3 (0.0-0.012); Nucleated Red Blood Cells Perc 0.0 % (0.0-0.2); Platelet Count Result 164 k/mm3 (150-375); Red Blood Count 4.16 M/mm3 (4.2-5.4); White Blood Count 10.3 K/mm3 (4.5-10.0)
--- NOTE | 2025-05-16 07:06 | LDADM ---
This patient, Jessica Clemons, was admitted to Labor/Delivery/Recovery 104 on 05/16/25 at 05:58. Plans for labor, pain management and were discussed with patient. Patient/family oriented to hospital policies and general routines including ID bracelet, bed and alarms, visiting hours, pain management, procedures, bathroom and other care routines, personal items, smoking policy, room service/diet and guest tray routines, infant security routines, and visiting hours. Patient/Family are encouraged to report perceived risks to care and to ask questions if they do not understand what they are told or what they should do. See OBIX for further documentation.
[2025-05-16 09:45] LABS: Syphilis IgG/IgM Antibody Non-Reactive (Nonreactive)
--- NOTE | 2025-05-16 10:46 | WPDOBADMIT ---
Obstetrics - Admit Note Admission Note: record reviewed. No pertinent additions to the history and/or any subsequent changes in the physical findings that are not consistent with the expected course of the were found. Presents for MIL for postdates at 41w1d. Pitocin per protocol. Desires unmedicated delivery. FHR category I. Additions to the history and/or subsequent changes in the physical findings follow. None.
[2025-05-16] MEDS: ONDANSETRON INJ 4 MG/2 ML VIAL IV PUSH ×2 (13:31→20:21)
--- NOTE | 2025-05-16 14:38 | PM.OBPNLAB ---
Pain Control Date/time seen: 05/16/25 12:38 Pain control: tolerating well Pelvic Exam Dilation (cm): 2 Effacement (%): 70 station: -3 Amniotic membrane status: Ruptured (clear fluid on AROM) Contractions Monitor mode: External Status status: Category l Assessment and Plan Assessment: induction ongoing Plan: continuous present management
--- NOTE | 2025-05-16 15:15 | WPDANESEPPF ---
Anes - Initial Pre Proc Eval Procedure: labor epidural Date/Time: 05/16/25 15:15 Surgeon: Sawyer Mims MD Pre Op Diagnosis: labor pain Pre Op Diagnosis: IOL Patient Data Age: 25 Gender: F Height: 1.63 m Weight: 122.7 kg Last Vital Signs Temp 36.2 C L 05/16/25 13:00 Pulse 97 05/16/25 15:10 BP 128/77 05/16/25 15:10 Pulse Ox 99 05/16/25 15:11 O2 Del Method Room Air 05/16/25 07:06 Allergies Allergy/AdvReac Type Severity Reaction Status Date / Time No Known Allergies Allergy Verified 05/16/25 07:02 Home Medications ?Medication ?Instructions ?Recorded ?Confirmed ?Type magnesium oxide 400 mg PO DAILY 12/15/23 05/16/25 History vitamins no.159-iron 1 tablet PO DAILY 12/15/23 05/16/25 History fumarate 28 mg-folic acid 800 mcg tablet ( Vitamin) Laboratory Tests 05/16/25 06:41 WBC 10.3 H K/mm3 (4.5-10.0) RBC 4.16 L M/mm3 (4.2-5.4) Hgb 13.1 g/dL (12.0-15.0) Hct 40.6 % (37.0-47.0) MCV 97.6 fl (80-100) MCH 31.5 pg (26-34) MCHC 32.3 g/dl (32-36) RDW 15.3 H % (11.5-14.5) Plt Count 164 k/mm3 (150-375) MPV 10.9 H fl (7.4-10.4) Immature Gran % (Auto) 0.8 H % (0-0.5) Neut % (Auto) 69.9 % (45.5-73.1) Lymph % (Auto) 22.0 % (18.3-44.2) [place] % (Auto) 6.0 % (2.6-8.5) Eos % (Auto) 1.0 % (0-4.4) Baso % (Auto) 0.3 % (0.2-1.2) Lymph # (Auto) 2.26 K/mm3 (0.9-3.2) [place] # (Auto) 0.6 K/mm3 (0.1-0.6) Eos # (Auto) 0.1 K/mm3 (0-0.3) Baso # (Auto) 0.0 K/mm3 (0.0-0.1) Abs Immat Gran (auto) 0.08 H K/mm3 (0.00-0.031) Absolute Neuts (auto) 7.2 H K/mm3 (1.3-6.7) Absolute Nucleated RBC 0.000 K/mm3 (0.0-0.012) Nucleated RBC % 0.0 % (0.0-0.2) Syphilis IgG/IgM Ab Non-reactive (Nonreactive) Blood Type O Positive Antibody Screen Negative : gestational age HCG: positive Patient hx anesthesia problems: none Family hx anesthesia problems: none Results Review: All pre-operative results and documents have been reviewed as part of the pre-operative evaluation. [facility] Past Medical History Medical History (Updated 05/16/25 @ 06:16 by Winston Beasley Jr., CRNA) Back pain Palpitations Anxiety and not yet delivered Depression Obesity Fibromyalgia Overweight (BMI 25.0-29.9) Family History Family History Grandparent Diabetes mellitus Throat cancer Mother Hypertension Social History Social History Smoking status: Never smoker Second hand tobacco smoke exposure: No Alcohol intake: never Substance use: never Substance use type: does not use Lack of Transportation: No Lack of Food: Never True Current Housing: I Have Housing Concerned About Future Housing: No Difficulty Paying Gas/Electric Bills: No Difficulty Paying for Meds: No Currently Unemployed: No Education: Associate Degree Difficulty w/ Childcare or Family Care: No Living arrangements: with family Gender identity (if verbalized by the patient): Female Sexual Orientation (if Verbalized by the Patient): Straight or Heterosexual Spiritual care concerns: No Anes - Eval Final PreProcedure Day of Procedure 05/16/25 15:15 Patient weight: morbidly obese ASA classification: III Anesthetic plan: proceed Anesthesia type and monitoring: regional epidural and standard monitoring Results Review: All pre-operative results and documents have been reviewed as part of the pre-operative evaluation. Informed Consent: The patient's anesthetic plan and its attendant risks and benefits were discussed with the patient/family/POA. Questions were solicited and answers provided to the satisfaction of the patient/family/POA.
[2025-05-16] MEDS: SODIUM CHLORIDE 0.9% IV 300 ML 600 ML I-UTERINE (19:45)
--- NOTE | 2025-05-16 21:23 | PM.OBPRVD ---
OB - Vaginal Delivery Note Procedure Delivery date: 05/16/25 Events: Other (Postdates) Induction method: Per Pitocin Protocol Delivery augmentation: Rupture of Membranes Delivery monitor: External FHT and Internal Uterine Route of delivery: Episiotomy description: None Laceration Description: Superficial (clitoral, hemostatic with pressure) Delivery repair: vicryl Specimen: No Quantitative Blood Loss (ml): 150 Anesthesia type: Epidural Disposition: Floor Complications: No immediate complications Narrative: See H&P and notes for details on patient's admission and labor. She progressed to complete cervical dilation and at the appropriate time began pushing. With adequate expulsive efforts by the mother, the baby's head was delivered without difficulty. Nuchal cord was present x1 and was delivered through. The baby's right shoulder was anterior and delivered under the pubic symphysis without difficulty. The posterior shoulder and the rest of the baby delivered without difficulty. The umbilical cord was doubly clamped and cut after 3 minutes of delayed cord clamping. Care of the was then assumed by the nursing staff. [place] Baby Date of : 05/16/25 Time of : 21:09 Gestational Age by Date: 41 Infant gender: Female presentation: vertex position: Left Occiput Anterior Placenta delivery description: Expressed Cord Vessel Description: 3 Vessels, Nuchal Cord and Delayed Cord Clamping
[2025-05-16] MEDS: OXYTOCIN 30 UNITS/NS 500 ML 30 UNITS/500 ML BAG 125 UNITS IV CONT (21:51)
[2025-05-16] MEDS: WITCH HAZEL 40 PADS 1 PAD TOPICAL (23:18)
[2025-05-16] MEDS: BENZOCAINE 20% AER SPR (*SP) 56 GM CAN 1 SPRAY TOPICAL (23:18)
[2025-05-17] MEDS: ACETAMINOPHEN 325 MG TABLET 650 MG PO ×4 (00:35→21:30)
[2025-05-17] MEDS: IBUPROFEN 600 MG TABLET PO ×4 (00:35→21:30)
[2025-05-17 00:38] VITALS: BP 131/77; PULSE 103; RESP 20; TEMP 36.5; O2SAT 97
[2025-05-17 04:30] VITALS: BP 134/81; PULSE 85; RESP 20; TEMP 36.5; O2SAT 99
[2025-05-17 05:06] LABS: Hematocrit 35.7 % (37.0-47.0); Hemoglobin 11.5 g/dL (12.0-15.0)
[2025-05-17 07:50] VITALS: BP 111/47; PULSE 83; RESP 16; TEMP 36.6; O2SAT 98
[2025-05-17] MEDS: MULTIVIT/MIN/PREN/FOL AC/IRON TABLET 1 TAB PO (08:13)
[2025-05-17] MEDS: DOCUSATE SODIUM 100 MG CAPSULE PO ×2 (08:13→17:23)
--- NOTE | 2025-05-17 11:37 | WPDANLDPN2 ---
Anes-Prog Note L&D Date/Time: 05/17/25 11:37 Comfortable throughout: labor and delivery Neuraxial method: epidural Epidural/Spinal procedure site: clean & non-tender Neuro status: Neuro function grossly intact. Cardiovascular status: normal Respiratory status: normal Airway patency: baseline Mental status: baseline Post-Op hydration status: normal Vital Signs: Last Vital Signs Temp 36.6 C 05/17/25 07:50 Pulse 83 05/17/25 07:50 Resp 16 05/17/25 07:50 BP 111/47 L 05/17/25 07:50 Pulse Ox 98 05/17/25 07:50 O2 Del Method Room Air 05/17/25 11:05 Pain score (VAS): 2 I/O: Intake & Output 05/16/25 05/17/25 05/17/25 23:59 07:59 15:59 Intake Total 1000 Output Total 300 Balance 700 Post-procedural complaints: none Patient feedback: Patient satisfied with anesthetic care.
[2025-05-17 12:12] VITALS: BP 135/85; PULSE 88; RESP 16; TEMP 36.3; O2SAT 98
--- NOTE | 2025-05-17 13:37 | P.DS_ITS ---
DS: Admitting Diagnosis Discharge Date 05/17/2025 Admitting Diagnosis Term OB - DS: Summary OB Procedures : None OB Procedures Intrapartum: Spontaneous Vag Delivery OB Procedures: : None Peripartum Data Laceration Description: Superficial (clitoral, hemostatic with pressure) Episiotomy description: None Time Spent with Patient Time attestation: Total time spent providing and/or coordinating discharge services: DS: Data Data Completed and Pending Labs on day of discharge: Labs from last 24 hours 05/17/25 04:16 Hgb 11.5 L Hct 35.7 L Discharge Plan Discharge Discharging Clinician: Barry Malave Patient Disposition: Home Activity: pelvic rest Diet: regular Patient Instructions: Antibiotic Form Patient Language: Persian Stand Alone Forms: General Discharge Information Follow-up/Referrals: Barry Malave MD [Physician, FAST FOOD SHIFT LEAD] Discharge Medications: Continued magnesium oxide 400 mg magnesium Tablet 400 mg PO DAILY Vitamin 28 mg iron- 800 mcg Tablet 1 tablet PO DAILY Date of admission: 05/16/25 05:58 Primary Care Provider: RenaJese Admitting Provider: Sawyer Mims Attending physician on admission: Sawyre Mims Condition: Stable
--- NOTE | 2025-05-17 13:37 | P.PNOB_ITS ---
OB - PN: Subj Subjective Date/time seen: 05/17/25 13:37 Patient comments: no complaints, pain well controlled, incisional pain, tolerating diet and flatus present OB - PN: Obj Data Labs 05/17/25 04:16 Labs: Laboratory Results - last 24 hr 05/17/25 04:16 Hgb 11.5 L Hct 35.7 L OB - PN A/P Plan day: 1 Plan: routine care Comments: No problems, routine care Time Spent With Patient Time: Total time spent is greater than 50% in coordination of care (as documented) at patient's floor/unit and/or counseling patient: Exam 2 Const: General: comfortable, no acute distress and alert Resp: Effort & Inspection: normal respiratory effort Auscultation: no crackles, no rales and no rhonchi Cardio: Rate: regular rate Heart sounds: no click, no murmurs and no rubs GI: Inspection: non-distended GI Palp: No Tenderness to palpation present (GI) Auscultation: normal bowel sounds Other: Incision - CDI Extrem: General: normal to inspection, no pedal edema and no calf tenderness
--- NOTE | 2025-05-17 13:38 | PC.NURSE ---
Mother verbalizes she is able to independently latch with appropriate positioning and alignment. She denies any nipple discomfort and is responsively . Infant is currently meeting outcomes for weight, output, jaundice, blood sugar and feeding frequencies of 8-12 times in 24 hours. Mother declines any additional assistance or education at this time. Mother is encouraged to call for assistance if her infant doesn?t latch, pain with latching, questions or concerns. Mother voiced understanding of information shared along with the mom/baby guide for an additional resource. Reported to the Primary RN.
--- NOTE | 2025-05-17 17:12 | PC.NURSE ---
Called to patient room to measure nipples for correct flange size per patient request. Patient was assessed for correct flange size 20mm) - discussed how each production grip has a different size guide for flanges. Mother states understanding. Mother verbalizes she is able to independently latch with appropriate positioning and alignment. She denies any nipple discomfort and is responsively . is currently meeting outcomes for weight, output, jaundice, blood sugar and feeding frequencies of 8-12 times in 24 hours. Mother declines any additional assistance or education at this time. Mother is encouraged to call for assistance if her doesn?t latch, pain with latching, questions or concerns. Mother voiced understanding of information shared along with the mom/baby guide for an additional resource. Reported to the Primary RN.
[2025-05-17 19:00] VITALS: BP 131/62; PULSE 97; RESP 18; TEMP 36.6
[2025-05-18] MEDS: ACETAMINOPHEN 325 MG TABLET 650 MG PO (04:46)
[2025-05-18] MEDS: IBUPROFEN 600 MG TABLET PO (04:46)
[2025-05-18 08:00] VITALS: BP 114/73; PULSE 97; RESP 14; TEMP 36.8
[2025-05-18] MEDS: MULTIVIT/MIN/PREN/FOL AC/IRON TABLET 1 TAB PO (09:41)
[2025-05-18] MEDS: DOCUSATE SODIUM 100 MG CAPSULE PO (09:41)
--- NOTE | 2025-05-18 09:50 | P.DS_ITS ---
DS: Admitting Diagnosis Discharge Date 05/18/2025 Admitting Diagnosis Term DS: Discharge Diagnosis Discharge Diagnosis (1) Term delivered: Code(s): O80 - Encounter for full-term uncomplicated delivery Status: Acute OB - DS: Summary OB Procedures : None OB Procedures Intrapartum: Spontaneous Vag Delivery OB Procedures: : None Peripartum Data Laceration Description: Superficial (clitoral, hemostatic with pressure) Episiotomy description: None Time Spent with Patient Time attestation: Total time spent providing and/or coordinating discharge services: Discharge Plan Discharge Discharging Clinician: Barry Malave Patient Disposition: Home Activity: pelvic rest Diet: regular Patient Instructions: Antibiotic Form Patient Language: Serbian Stand Alone Forms: General Discharge Information Follow-up/Referrals: Barry Malave MD [Physician, CONFERENCE AND EVENT ORGANISER] Discharge Medications: Continued magnesium oxide 400 mg magnesium Tablet 400 mg PO DAILY Vitamin 28 mg iron- 800 mcg Tablet 1 tablet PO DAILY Date of admission: 05/16/25 05:58 Primary Care Provider: WendiJese Admitting Provider: Sawyer Mims Attending physician on admission: Sawyer Mims Condition: Stable
--- NOTE | 2025-05-18 09:50 | P.PNOB_ITS ---
OB - PN: Subj Subjective Date/time seen: 05/18/25 09:50 Patient comments: no complaints, pain well controlled and tolerating diet OB - PN: Obj Data Labs 05/17/25 04:16 OB - PN A/P Plan day: 2 Plan: routine care and discharge home Time Spent With Patient Time: Total time spent is greater than 50% in coordination of care (as documented) at patient's floor/unit and/or counseling patient: Exam 2 Const: General: comfortable and no acute distress Resp: Effort & Inspection: normal respiratory effort Auscultation: no rales, no rhonchi and no wheezes Cardio: Rate: regular rate Heart sounds: no click, no murmurs and no rubs GI: GI Palp: Yes Soft to palpation and No Tenderness to palpation present (GI) Auscultation: normal bowel sounds Extrem: General: normal to inspection, no pedal edema and no calf tenderness
[2025-05-20 10:28] VITALS: BP 131/79; PULSE 87; RESP 18; TEMP 36.9; O2SAT 100
== END 2025-05-18 15:53 | disposition home or self-care (01) | DRG 768 ==
LOC: ANHLDR 06:07 → ANHOB2 05-17 13:38 → ANHLDR 05-20 08:59 → ANHOB2 05-20 08:59
PROVIDERS: Admitting Provider Obstetrics & Gynecology; PCP Family Medicine; Visit Provider Obstetrics & Gynecology
DX: O69.81X0 Labor and delivery complicated by cord around neck, without compression, not applicable or unspecified (principal); Z37.0 Single live birth; Z3A.41 41 weeks gestation of pregnancy; O70.0 First degree perineal laceration during delivery
CPT/HCPCS: 36415; 85014; 85018; 85025; 86593; 86850; 86900; 86901; A9270; J2405; J2590; J2795; J7030; J7120